=== PATIENT | female | born 2005 | race Caucasian/White ===

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

== ENCOUNTER 2024-01-11 19:38 | Emergency (ER) | payer OTHER, SELFPAY ==
[2024-01-11 20:01] VITALS: BP 114/62; PULSE 89; RESP 18; TEMP 37.1; O2SAT 99; BMI 20.2
[2024-01-12 01:10] VITALS: BP 128/75; PULSE 78; RESP 22; O2SAT 96
--- NOTE | 2024-01-12 01:22 | ED_ITS ---
HPI - Dental/Oral General Chief complaint: Dental/Oral Stated complaint: Rt bottom tooth ache Time Seen by Provider: 01/12/24 01:22 Source: patient Mode of arrival: Ambulatory History of Present Illness HPI Narrative: 18-year-old female with reported cavity known right lower tooth, awaiting scheduling of a dental filling, now with pain to that same tooth, no jaw swelling. Patient is not currently on antibiotics. No trouble swallowing, no swelling to the jaw. No neck pain, no trouble moving her neck. She handles her secretions well. No change in voice Related Data Home Medications Medication Instructions Recorded Confirmed propranolol 20 mg tablet 20 mg PO BID ##0 10/30/17 11/21/23 cholecalciferol (vitamin D3) 25 ##0 12/05/17 11/21/23 mcg/spray(1,000 unit/spray) subling spray, susp cyproheptadine 4 mg tablet 4 mg PO BEDTIME 10/22/23 11/21/23 dextroamphetamine-amphetamine ER 15 mg PO BID 10/22/23 11/21/23 15 mg 24hr capsule,extend release (Adderall XR) fluoxetine 10 mg capsule 10 mg PO DAILY 10/22/23 11/21/23 fluoxetine 20 mg capsule 20 mg PO DAILY 10/22/23 11/21/23 guanfacine 1 mg tablet 1 mg PO DAILY 10/22/23 11/21/23 lithium carbonate 150 mg capsule 150 mg PO ONCE 10/22/23 11/21/23 quetiapine 100 mg tablet 100 mg PO DAILY 10/22/23 11/21/23 Previous Rx's Medication Instructions Recorded ondansetron 4 mg disintegrating 4 mg PO Q8H PRN nausea, headache 06/10/23 tablet #14 tabs sumatriptan succinate 50 mg tablet 50 mg PO Q2-4H PRN migraine 11/24/23 (Imitrex) headache #9 tabs amoxicillin 500 mg tablet 500 mg PO Q8H 7 days #21 tabs 01/12/24 Allergies Allergy/AdvReac Type Severity Reaction Status Date / Time azithromycin AdvReac upset Verified 11/21/23 18:02 stomach Review of Systems Review of Systems ROS Unobtainable: All systems reviewed & are unremarkable except as noted in HPI and below Patient History Medical History (Updated 01/12/24 @ 02:19 by Thuan Lam MD) Acne (~2015) Sleep apnea Restless leg syndrome (~2019) Headache (~2015) Shoulder pain (~2018) Anemia (~2018) Vertigo (~2019) Tinnitus (~2016) Ruptured tympanic membrane (~2009) History of frequent ear infections in childhood (~2007) Sleep disturbance ADHD Autism (~2021) FADY (generalized anxiety disorder) PTSD (post-traumatic stress disorder) LOAN (middle ear effusion) Eczematoid otitis externa of right ear Otitis externa Otitis media Migraine (~2020) Depression (~2013) Suicidal ideation Surgical History (Updated 10/08/23 @ 18:50 by Divya De Jesus) Toenail fungus (~2020) Family History (Updated 10/08/23 @ 18:58 by Divya De Jesus) Father Diabetes mellitus Mental health problem Mother Hyperlipidemia Mental health problem Anxiety PTSD (post-traumatic stress disorder) Brother Mental health problem Anxiety Depression Chronic post-traumatic stress disorder (PTSD) Brother Mental health problem Anxiety Sister Mental health problem Anxiety Suicidal ideation Grandfather Autism Grandmother Anxiety Mental health problem Grandfather Diabetes mellitus History of heart disease Hypertension Grandmother Cancer Father Anxiety Chronic post-traumatic stress disorder (PTSD) Social History Smoking Status: Never smoker Smoking Status: Never smoker alcohol intake frequency: a few times a month Substance Use Type: does not use Exam Narrative Exam Narrative: GENERAL:Well-developed patient, in mild distress. HEAD: Atraumatic. Normocephalic. EYES: Pupils equal round and reactive. Extraocular motions intact. No scleral icterus. No injection or drainage. ENT: Nose without bleeding, purulent drainage. No grossly obvious significant dental caries right lower teeth, no swelling of gingiva, no buccal swelling, no submandibular swelling. Normal phonation. Handling secretions well. Normal neck movement. Throat without erythema, tonsillar hypertrophy or exudate. Airway patent. NECK: Trachea midline. Non tender CARDIOVASCULAR: Regular rate and rhythm without murmurs, gallops, or rubs. RESPIRATORY: Clear to auscultation. Breath sounds equal bilaterally. No wheezes, rales, or rhonchi. GASTROINTESTINAL: Abdomen soft, non-tender, nondistended. EXTREMITIES: No edema or joint tenderness. BACK: Nontender without deformity or crepitance. No flank tenderness. NEURO: AOx3. SKIN: No rash or erythema of visible areas Initial Vital Signs Initial Vital Signs: Vital Signs Temperature 98.8 F 01/11/24 20:01 Pulse Rate 89 01/11/24 20:01 Respiratory Rate 18 01/11/24 20:01 Blood Pressure 114/62 01/11/24 20:01 Pulse Oximetry 99 01/11/24 20:01 Oxygen Delivery Method Room Air 01/11/24 20:01 Course Orders Ordered: Discontinued Medications Amoxicillin (Amoxicillin 250 Mg Capsule) 1,000 mg PO NOW ONE Stop: 01/12/24 02:18 Last Admin: 01/12/24 02:30 Dose: 1,000 mg Documented By: Ketorolac Tromethamine (Ketorolac 30 Mg/Ml Vial) 30 mg IM NOW ONE Stop: 01/11/24 21:40 Last Admin: 01/11/24 22:56 Dose: Not Given Documented By: JESSE Vital Signs Vital signs: Vital Signs - 8 hr 01/12/24 01:10 01/12/24 02:32 Pulse Rate 78 71 Respiratory Rate 22 15 Blood Pressure 128/75 100/57 L Pulse Oximetry 96 100 Oxygen Delivery Method Room Air Room Air MDM - Dental/Oral MDM Narrative Medical decision making narrative: 18-year-old female with right lower molar dental pain, no swelling to cheek or submandibular space, afebrile, normal neck motion. Presumed apical dental abscess. First dose amoxicillin, prescription for 7 day course. Follow up with dentist advised for definitive care. Symptoms improved after IM Toradol. Consider ibuprofen pain control. Follow up with dentist, return precautions, home with family Discharge Plan Departure Patient Disposition: Home Clinical Impression: Pain, dental Instructions: Tooth Decay Activity Restrictions/Additional Instructions: Reported tooth cavity right lower awaiting filling by your dentist, now with atraumatic pain, no gross swelling to jaw or neck or cheek. Ibuprofen helped relieve pain. Consider use of ibuprofen over the counter. First dose antibi otic for presumed apical abscess infection given in the emergency department, prescription for further 7 day course. Follow up with your dentist, call his office later today Friday when open, to coordinate close follow up definitive care. Return to this/nearest emergency department for any change worsening symptoms or any concerns prior Prescriptions: New amoxicillin 500 mg tablet 500 mg PO Q8H 7 Days Qty: 21 0RF No Action dextroamphetamine-amphetamine [Adderall XR] 15 mg capsule,extended release 24 hr 15 mg PO BID cyproheptadine 4 mg tablet 4 mg PO BEDTIME fluoxetine 10 mg capsule 10 mg PO DAILY fluoxetine 20 mg capsule 20 mg PO DAILY guanfacine 1 mg tablet 1 mg PO DAILY lithium carbonate 150 mg capsule 150 mg PO ONCE quetiapine 100 mg tablet 100 mg PO DAILY propranolol 20 MG tablet 20 mg PO BID Qty: 0 cholecalciferol (vitamin D3) 30 ML spray,suspension Qty: 0 sumatriptan succinate [Imitrex] 50 mg tablet 50 mg PO Q2-4H PRN (Reason: migraine headache) Qty: 9 0RF Rx Instructions: do not exceed 4 doses per 24 hrs ondansetron 4 mg tablet,disintegrating 4 mg PO Q8H PRN (Reason: nausea, headache) Qty: 14 0RF Referrals: Maria A Elliott MD [Primary Care Provider] - Stand Alone Forms: Patient Portal/API
[2024-01-12] MEDS: AMOXICILLIN 250 MG CAPSULE 1000 MG PO (02:30)
[2024-01-12 02:32] VITALS: BP 100/57; PULSE 71; RESP 15; O2SAT 100
== END 2024-01-12 02:40 | disposition home or self-care (01) ==
PROVIDERS: Emergency Provider Emergency Medicine; PCP Family Medicine
DX: K08.89 Other specified disorders of teeth and supporting structures (principal)
CPT/HCPCS: 99283

== ENCOUNTER → 2024-04-17 10:12 | Outpatient (CLI) | payer OTHER, MEDICAID, SELFPAY ==
[2024-04-17 11:04] LABS: HEMOLYSIS < 15 (0-50); Iron 123 ug/dL (37-170)
[2024-04-17 11:14] LABS: Percent Iron Saturation 30 % (15-50); Total Iron Binding Capacity 406 ug/dL (265-497); Transferrin 318 mg/dL (206-381)
[2024-04-17 11:39] LABS: Ferritin 23 ng/mL (6-137)
== END ==
PROVIDERS: PCP Family Medicine; Referring Provider Nurse Practitioner; Visit Provider Nurse Practitioner
DX: R25.8 Other abnormal involuntary movements (principal); E83.10 Disorder of iron metabolism, unspecified
CPT/HCPCS: 36415; 82728; 83540; 83550

== ENCOUNTER → 2024-05-11 12:28 | Outpatient (CLI) | payer OTHER, MEDICAID, SELFPAY ==
[2024-05-11 14:46] LABS: Lithium 0.3 mmol/L (0.6-1.2)
== END ==
PROVIDERS: PCP Family Medicine; Referring Provider Psychiatry & Neurology Psychiatry; Visit Provider Psychiatry & Neurology Psychiatry
DX: F33.2 Major depressive disorder, recurrent severe without psychotic features (principal); F43.10 Post-traumatic stress disorder, unspecified; G47.00 Insomnia, unspecified; Z79.899 Other long term (current) drug therapy
CPT/HCPCS: 36415; 80178

== ENCOUNTER → 2024-07-01 15:31 | Outpatient (CLI) | payer BC, OTHER, SELFPAY ==
[2024-07-01 17:13] LABS: Add Manual Diff / Slide Review NO; Basophils Absolute Auto 0 /uL (0-100); Basophils Percent Auto 0.5 % (0-2); Eosinophils Absolute Auto 200 /uL (0-450); Eosinophils Percent Auto 1.7 % (2-4); Hematocrit 38.8 % (36-46); Hemoglobin 13.1 g/dL (12.0-16.0); Lymphocytes Absolute Auto 2700 /uL (1100-4500); Lymphocytes Percent Auto 29.7 % (25-40); Mean Corpuscular HGB Conc 33.8 % (30-36); Mean Corpuscular Hemoglobin 28.8 PG (26-34); Mean Corpuscular Volume 85.2 fL (80-100); Monocytes Absolute Auto 700 /uL (0-900); Monocytes Percent Auto 7.5 % (3-14); Neutrophils Absolute Auto 5600 /uL (1500-7000); Neutrophils Percent Auto 60.6 % (50-75); Platelet Count 232 X10^3/uL (150-400); Red Blood Cell Count 4.55 X10^6/uL (4.0-5.2); White Blood Cell Count 9.2 X10^3/uL (4.5-11.0)
[2024-07-01 17:19] LABS: Iron 153 ug/dL (37-170)
[2024-07-01 17:21] LABS: Alanine Aminotransferase 17 IU/L (<35); Albumin 4.3 g/dL (3.5-5.0); Albumin Globulin Ratio 1.7 (1.0-2.8); Alkaline Phosphatase 55 U/L (38-126); Aspartate Aminotransferase 27 IU/L (14-36); BUN Creatinine Ratio 14.7 (6-22); Bilirubin Total 0.4 mg/dL (0.2-1.3); Blood Urea Nitrogen 11 mg/dL (7-17); Calcium 9.5 mg/dL (8.4-10.2); Carbon Dioxide 24 mmol/L (22-32); Chloride 106 mmol/L (98-107); Estimated Glomerular Filt Rate > 60 mL/min (>60); Globulin 2.6 g/dL (1.7-4.1); Glucose 96 mg/dL (70-100); Potassium 3.9 mmol/L (3.4-5.1); Sodium 137 mmol/L (137-145); Total Protein 6.9 g/dL (6.3-8.2)
[2024-07-01 17:30] LABS: Percent Iron Saturation 35 % (15-50); Total Iron Binding Capacity 435 ug/dL (265-497); Transferrin 360 mg/dL (206-381)
[2024-07-01 17:57] LABS: Ferritin 49 ng/mL (6-137); HEMOLYSIS < 15 (0-50)
[2024-07-01 18:09] LABS: HEMOLYSIS < 15 (0-50)
[2024-07-06 13:12] LABS: ANA Screen, IFA Negative (.)
== END ==
PROVIDERS: PCP Family Medicine; Referring Provider Family Medicine; Visit Provider Family Medicine
DX: E61.1 Iron deficiency (principal); R53.83 Other fatigue; G25.81 Restless legs syndrome; F43.10 Post-traumatic stress disorder, unspecified; F41.1 Generalized anxiety disorder; F84.0 Autistic disorder; R63.6 Underweight; R42 Dizziness and giddiness; G43.909 Migraine, unspecified, not intractable, without status migrainosus
CPT/HCPCS: 80053; 82728; 83540; 83550; 84443; 85025; 86038

== ENCOUNTER 2024-08-27 18:44 | Emergency (ER) | payer OTHER, SELFPAY ==
[2024-08-27 18:55] VITALS: BP 128/61; PULSE 77; RESP 18; TEMP 37.4; O2SAT 100; BMI 22.4
[2024-08-27 21:08] VITALS: BP 95/59; PULSE 90; O2SAT 99
== END 2024-08-27 23:16 | disposition left against medical advice (07) ==
PROVIDERS: Emergency Provider Emergency Medicine; PCP Family Medicine
DX: M54.50 Low back pain, unspecified (principal)
CPT/HCPCS: 99281

== ENCOUNTER → 2024-12-20 15:21 | Outpatient (CLI) | payer BC, OTHER, SELFPAY ==
--- NOTE | 2024-12-20 15:22 | DI.NM.S_ITS ---
PROCEDURE: NM EXERCISE TREADMILL NON NUC COMPARISON: None INDICATIONS: CHEST PAIN FINDINGS: Rest ECG sinus rhythm 82 bpm. Merlin protocol 9:00, maximum heart rate 140 bpm (70% peak predicted), peak blood pressure 138/50, 10.1 METS, DANIELLE +17%. Exercise ECG sinus tachycardia, no ST segment changes or arrhythmias. The patient did not report exercise-induced chest discomfort however did complain of lightheadedness. IMPRESSION: Equivocal study. Unable to be interpreted for ischemia due to inability to achieve target heart rate. No evidence of exercise-induced arrhythmia or hypotension. Slightly reduced exercise capacity. Dictated by: Lindsey Dennis D.O. on 12/20/2024 at 16:16 Approved by: Lindsey Dennis D.O. on 12/20/2024 at 16:20
== END ==
PROVIDERS: Family Provider Family Medicine; PCP Family Medicine; Referring Provider Internal Medicine; Visit Provider Internal Medicine
DX: R07.9 Chest pain, unspecified (principal)
CPT/HCPCS: 93017

== ENCOUNTER → 2024-12-31 15:09 | Outpatient (CLI) | payer OTHER, SELFPAY ==
--- NOTE | 2024-12-31 15:10 | DI.ECHO.S_ITS ---
[facility] : : [address] : : [place] : : [id number] : : Phone: [phone] Echocardiogram Report + + :Name: ILIANA NELSON Study Date: 12/31/2024 Height: 60 in : :Hospital ReadingLocation: Weight: 130 lb : : Gender: Female BSA: 1.6 m2 : :: 2005 Age: 19 yrs BP: 110/72 mmHg: :Reason For Study: CHEST PAIN : :Ordering Physician: SHALINI, : :DAVIN Huang Performed By: Nic Moralez : :Referring: DAVIN LOYA : + + Interpretation Summary The left ventricle is normal in size. Left ventricular systolic function appears normal without focal wall motion abnormalities. The ejection fraction is estimated to be 55-60%. Diastolic parameters suggest probable normal left ventricular diastolic function and normal filling pressures. The right ventricle is normal in size and function. Pulmonary artery pressures cannot be estimated because of the lack of a measurable TR jet velocity but the IVC suggests a CVP of around 3 mmHg. There is no other significant valvular heart disease. In apical views there appears to be some degree of hypertrophy of the papillary muscle/chordae tendineae of the mitral subvalvular apparatus. Consider a limited echo to focus on subvalvular apparatus or cardiac MRI if clinically warranted.The left atrial size is normal. The aortic root is normal size. Procedure: A two-dimensional transthoracic echocardiogram with color flow and Doppler was performed. The study quality was technically good. There is no prior echocardiogram noted for this patient. The patient was in normal sinus rhythm during the exam. Left Ventricle: The left ventricle is normal in size. There is normal left ventricular wall thickness. In apical views there appears to be some degree of hypertrophy of the papillary muscle/chordae tendineae of the mitral subvalvular apparatus. Consider a limited echo to focus on subvalvular apparatus or cardiac MRI if clinically warranted. Left ventricular systolic function appears normal without focal wall motion abnormalities. The ejection fraction is estimated to be 55-60%. Diastolic parameters suggest probable normal left ventricular diastolic function and normal filling pressures. Right Ventricle: The right ventricle is normal in size and function. Atria: The left atrial size is normal. Right atrial size is normal. There is no Doppler evidence for an interatrial shunt. Mitral Valve: The mitral valve leaflets appear normal. There is no evidence of stenosis, fluttering, or prolapse. There is no mitral regurgitation noted. Aortic Valve: The aortic valve is trileaflet. The aortic valve opens well. No aortic regurgitation is present. Tricuspid Valve: The tricuspid valve leaflets are thin and pliable. No tricuspid regurgitation. Pulmonary artery pressures cannot be estimated because of the lack of a measurable TR jet velocity but the IVC suggests a CVP of around 3 mmHg. Pulmonic Valve: The pulmonic valve is not well seen, but is grossly normal. There is no pulmonic valvular regurgitation. There is no other significant valvular heart disease. Great Vessels: The aortic root is normal size. The dimensions of the ascending aorta are normal. The pulmonary artery is not well visualized, but is probably normal size. The IVC is of normal diameter and collapses greater than 50% with a sniff. This suggests a low right atrial pressure of 3 mm Hg. Pericardium/ Pleura There is no pericardial effusion. There is no pleural effusion. MMode/2D Measurements & Calculations LVIDd: 4.6 cm LVOT diam: 1.9 cm LVIDs: 3.0 cm Ao root diam: 2.5 cm FS: 35.6 % asc Aorta Diam: 2.4 cm EPSS: 0.56 cm Ao Arch Diam (Prox Trans): 1.2 cm IVSd: 0.50 cm LVPWd: 0.59 cm LV austin. diameter/BSA (cm/m^2): 2.9 LV sys. diameter/BSA (cm/m^2): 1.9 LA A2 area: 13.4 cm2 RA long axis: 3.9 cm LA A4 area: 14.0 cm2 RA area: 10.2 cm2 LA length (vol): 4.7 cm RA vol: 22.9 ml LA vol: 34.0 ml RA : 14.8 ml/m2 LA vol index: 21.9 ml/m2 IVC diam: 1.6 cm RVD1 (basal): 3.1 cm RVD2 (mid): 2.7 cm TAPSE: 2.8 cm Doppler Measurements & Calculations Ao V2 max: 148.4 cm/sec LVOT Max Karri: 112.1 cm/sec Ao V2 mean: 95.6 cm/sec LV V1 max P.0 mmHg Ao max P.8 mmHg LV V1 VTI: 22.3 cm Ao mean P.2 mmHg CARLIN(I,D): 2.0 cm2 Ao V2 VTI: 29.5 cm CARLIN(V,D): 2.0 cm2 sev ratio: 0.76 CARLIN indexed to BSA (cm^2/m^2): 1.3 MV E max karri: 128.5 cm/sec PA V2 max: 112.6 cm/sec MV A max karri: 38.7 cm/sec PA V2 mean: 86.9 cm/sec MV E/A: 3.3 PA mean P.2 mmHg Med Peak E' Karri: 13.9 cm/sec PA pr(Accel): 41.3 mmHg E/E' med: 9.2 Lat Peak E' Karri: 18.3 cm/sec E/E' lat: 7.0 E/e' average: 8.1 MV dec time: 0.20 sec SV(LVOT): 60.4 ml Reading Physician:07:27 AM
== END ==
LOC: ECHO 15:09
PROVIDERS: Family Provider Family Medicine; PCP Family Medicine; Referring Provider Internal Medicine; Visit Provider Internal Medicine
DX: R07.9 Chest pain, unspecified (principal); R42 Dizziness and giddiness; R00.0 Tachycardia, unspecified
CPT/HCPCS: 93306

== ENCOUNTER 2025-02-11 09:45 | Outpatient (RCR) | payer BC, OTHER, SELFPAY ==
--- NOTE | 2024-11-23 16:24 | PT.OIE ---
Current Diagnoses Dorsalgia, unspecified (11/23/24) Past Medical History (Last Updated 09/13/24 @ 14:01 by Andrea Curry MD) Acne (~2015) ADHD Anemia (~2017) Autism (~2021) Depression (~2013) Eczematoid otitis externa of right ear FADY (generalized anxiety disorder) Headache (~2015) History of frequent ear infections in childhood (~2007) LOAN (middle ear effusion) Migraine (~2020) Otitis externa Otitis media PTSD (post-traumatic stress disorder) Restless leg syndrome (~2019) Ruptured tympanic membrane (~2009) Shoulder pain (~2017) Sleep apnea Sleep disturbance Suicidal ideation Tinnitus (~2016) Vertigo (~2019) Past Surgical History (Last Updated 10/08/23 @ 18:50 by Divya De Jesus) Toenail fungus (~2020) Visit Care Team Role Provider Type Marai A Elliott MD Attending Provider Physician Family Provider Primary Care Provider Referring Provider Specialty: Family Practice 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 Address: [address] [place] [address] Email: [email or web address] Physical Therapy Initial Evaluation PT-OP-A Visit Information Start: 11/23/24 12:56 Freq: Status: Active Protocol: Document 11/23/24 11:40 DCW (Rec: 11/23/24 13:16 DCW [id number]) Out-Patient Physical Therapy Visit Information Visit Information Visit Type Initial Evaluation Visit Start Time 11:40 Visit Stop Time 12:15 Visit Number 1 Number of PAROLE OR PROBATION OFFICER Visits 0 Evaluation Information Evaluation Date 11/23/24 PT-OP-B Current Condition Start: 11/23/24 12:56 Freq: Status: Active Protocol: Document 11/23/24 11:40 DCW (Rec: 11/23/24 13:31 DCW [id number]) Current Condition History of Current Condition Onset Date Three month history Current Complaints Low back pain, mid back pain, shoulder pain History of Current Condition Pt is a 19 year old female presenting with a three month history of low back pain. Reports she must have twisted wrong or something, and experienced a general severe pain. Reports it was bad enough that she ended up in the ED, however left before being seen due to the wait. Has improved over the past few months, not as frequently sore. 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 Pain improves when she lies down. Notes pain is occasionally down her posterior hips, right worse than left. Treatment Goals Patient/Caregiver Goals Return to gardening and job duties without pain Personal Factors Other Personal Factors That May Effect Hx of Migraine, PTSD, Autism, Therapy/Recovery ADHA, Depression PT-OP-C Subjective Start: 11/23/24 12:56 Freq: Status: Active Protocol: Document 11/23/24 11:40 DCW (Rec: 11/23/24 13:16 DCW [id number]) OP-PT Subjective Patient Comments Patient Comments It's not painful all the time now. Patient Questionnaires Oswestry Low Back Index Oswestry Score = 22% OP-PT Pain Assessment Pain Assessment Grid Paper Pain Assessment Grid Completed Yes: See scan PT-OP-F Manual Assessment Start: 11/23/24 12:56 Freq: Status: Active Protocol: Document 11/23/24 11:40 DCW (Rec: 11/23/24 13:16 DCW [id number]) Manual Assessments Soft Tissue Assessment Soft Tissue Mobility Assessment Mild-moderate tone in right glute, bilateral piriformis, bilateral rhomboids, R>L upper trap PT-OP-L Special Tests Start: 11/23/24 12:56 Freq: Status: Active Protocol: Document 11/23/24 11:40 DCW (Rec: 11/23/24 13:16 DCW [id number]) Special Tests Lumbar Spine Special Tests Vertical Spine Loading Test Results Negative Straight Leg Raise Test Results Negative Standing Flexion Test Results Negative Slump Test Results Negative A-P Shearing Test Results Negative PT-OP-M Strength Start: 11/23/24 12:56 Freq: Status: Active Protocol: Document 11/23/24 11:40 DCW (Rec: 11/23/24 13:16 DCW [id number]) Trunk Strength Trunk Manual Muscle Testing Core Stabilization Difficulty john abdominal musculature, improved with verbal cues PT-OP-Q Treatments Start: 11/23/24 12:56 Freq: Status: Active Protocol: Document 11/23/24 11:40 DCW (Rec: 11/23/24 13:16 DCW [id number]) Therapeutic Exercises Supine Exercises PPT Supine Exercise Name PPT /c TrA bracing Sitting Exercises Piriformis Sitting Exercise Name Seated figure-4 Scalene Sitting Exercise Name posterior scalene stretch Side bilateral Upper Trap Sitting Exercise Name Upper Trap stretch Side bilateral PT-OP-T Assessment and Plan Start: 11/23/24 12:56 Freq: Status: Active Protocol: Document 11/23/24 11:40 DCW (Rec: 11/23/24 16:24 DCW [id number]) Physical Therapy Assessment Rehab Potential Rehabilitation Potential Good Evaluation Complexity Number of Personal Factors/Comorbidities 3 or More Number of Body Systems Impaired 3 Clinical Presentation at Evaluation Evolving Impairments Impairments Activity Tolerance,Functional Activities,Functional Mobility ,Pain,Soft Tissue Mobility, Strength,Tone Goals Three Impairment Pt displays increased muscle tone in low back and bilateral piriformis Lending Advisor Goal (LTG) Pt to present with mild muscle tone in bilateral lumbar paraspinals and piriformis LTG Duration 01/23/25 Two Impairment Pt experiences increased low back pain when gardening [facility] Goal (LTG) Pt to report ability to spend 90 minutes gardening without increased back pain. LTG Duration 01/23/25 One Impairment Pt does not have an appropriate home exercise program Short Term Goal (STG) Pt to be independent and compliant with an appropriate HEP STG Duration 12/23/24 Assessment Summary Assessment Pt presents with signs and symptoms consistent with referring diagnosis. Special testing largely unremarkable today, unable to replicate any of her ongoing pain. No notable structural changes. Does appear to have increased tone in low back musculature, as well as some overall core weakness. Pt should benefit from skilled therapeutic intervention focusing on core strengthening, tone management , stretching/flexibility, and functional mobility. Physical Therapy Plan Frequency and Duration Frequency of Treatment 2x/Week Plan of Care Start Date 11/23/24 Plan of Care End Date 01/23/25 Therapeutic Interventions Therapeutic Interventions Home Exercise Program,Joint Mobilizations,Manual Therapy, Neuromuscular Re-education, Patient/Caregiver Education, Self-Care/Home Management,Soft Tissue Mobilization,Taping, Therapeutic Activities, Therapeutic Exercises Next Visit Focus/Plan Next Note Type Treatment Note Next Visit Plan Core/trunk strengthening, stretching, STM
--- NOTE | 2024-11-23 16:24 | PT.OPPOC ---
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 Reports she must have twisted wrong or something, and experienced a general severe pain. Reports it was bad enough that she ended up in the ED, however left before being seen due to the wait. Has improved over the past few months, not as frequently sore. 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 Pain improves when she lies down. Notes pain is occasionally down her posterior hips, right worse than left. Treatment Goals Patient/Caregiver Goals Return to gardening and job duties without pain Personal Factors Other Personal Factors That May Effect Hx of Migraine, PTSD, Autism, Therapy/Recovery ADHA, Depression PT-OP-T Assessment and Plan Start: 11/23/24 12:56 Freq: Status: Active Protocol: Document 11/23/24 11:40 DCW (Rec: 11/23/24 16:24 DCW [id number]) Physical Therapy Assessment Rehab Potential Rehabilitation Potential Good Evaluation Complexity Number of Personal Factors/Comorbidities 3 or More Number of Body Systems Impaired 3 Clinical Presentation at Evaluation Evolving Impairments Impairments Activity Tolerance,Functional Activities,Functional Mobility ,Pain,Soft Tissue Mobility, Strength,Tone Goals Three Impairment Pt displays increased muscle tone in low back and bilateral piriformis Prison Goal (LTG) Pt to present with mild muscle tone in bilateral lumbar paraspinals and piriformis LTG Duration 01/23/25 Two Impairment Pt experiences increased low back pain when gardening Supervisor Shearing Goal (LTG) Pt to report ability to spend 90 minutes gardening without increased back pain. LTG Duration 01/23/25 One Impairment Pt does not have an appropriate home exercise program Short Term Goal (STG) Pt to be independent and compliant with an appropriate HEP STG Duration 12/23/24 Assessment Summary Assessment Pt presents with signs and symptoms consistent with referring diagnosis. Special testing largely unremarkable today, unable to replicate any of her ongoing pain. No notable structural changes. Does appear to have increased tone in low back musculature, as well as some overall core weakness. Pt should benefit from skilled therapeutic intervention focusing on core strengthening, tone management , stretching/flexibility, and functional mobility. Physical Therapy Plan Frequency and Duration Frequency of Treatment 2x/Week Plan of Care Start Date 11/23/24 Plan of Care End Date 01/23/25 Therapeutic Interventions Therapeutic Interventions Home Exercise Program,Joint Mobilizations,Manual Therapy, Neuromuscular Re-education, Patient/Caregiver Education, Self-Care/Home Management,Soft Tissue Mobilization,Taping, Therapeutic Activities, Therapeutic Exercises Next Visit Focus/Plan Next Note Type Treatment Note Next Visit Plan Core/trunk strengthening, stretching, STM Plan of Care Dates Plan of Care Start Date 11/23/24 Plan of Care End Date 01/23/25 Electronically Signed by: Malik Botello, PT 11/23/24 [id number] If you are in agreement with this Plan of Care, please return a signed and dated copy. I have reviewed this Plan of Care and certify that the skilled therapy services above are required to meet the patient?s needs. Physician Signature Date Printed Name and Credentials Clinical Instructor Signature Printed Name and Credentials
--- NOTE | 2024-11-26 12:17 | PT.OTN ---
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 Reports she must have twisted wrong or something, and experienced a general severe pain. Reports it was bad enough that she ended up in the ED, however left before being seen due to the wait. Has improved over the past few months, not as frequently sore. 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 Pain improves when she lies down. Notes pain is occasionally down her posterior hips, right worse than left. Treatment Goals Patient/Caregiver Goals Return to gardening and job duties without pain Personal Factors Other Personal Factors That May Effect Hx of Migraine, PTSD, Autism, Therapy/Recovery ADHA, Depression PT-OP-C Subjective Start: 11/23/24 12:56 Freq: Status: Active Protocol: Document 11/26/24 11:32 DCW (Rec: 11/26/24 12:17 DCW [id number]) OP-PT Subjective Patient Comments Patient Comments Pt admits she fairly tired today. PT-OP-F Manual Assessment Start: 11/23/24 12:56 Freq: Status: Active Protocol: Document 11/23/24 11:40 DCW (Rec: 11/23/24 13:16 DCW [id number]) Manual Assessments Soft Tissue Assessment Soft Tissue Mobility Assessment Mild-moderate tone in right glute, bilateral piriformis, bilateral rhomboids, R>L upper trap PT-OP-L Special Tests Start: 11/23/24 12:56 Freq: Status: Active Protocol: Document 11/23/24 11:40 DCW (Rec: 11/23/24 13:16 DCW [id number]) Special Tests Lumbar Spine Special Tests Vertical Spine Loading Test Results Negative Straight Leg Raise Test Results Negative Standing Flexion Test Results Negative Slump Test Results Negative A-P Shearing Test Results Negative PT-OP-M Strength Start: 11/23/24 12:56 Freq: Status: Active Protocol: Document 11/23/24 11:40 DCW (Rec: 11/23/24 13:16 DCW [id number]) Trunk Strength Trunk Manual Muscle Testing Core Stabilization Difficulty john abdominal musculature, improved with verbal cues PT-OP-Q Treatments Start: 11/23/24 12:56 Freq: Status: Active Protocol: Document 11/26/24 11:32 DCW (Rec: 11/26/24 12:17 DCW [id number]) Gym Equipment Therapeutic Ball Bridging Exercise Details Bridging /c feet on ball Ball Size/Color Blue - 45 cm Body Position Supine LTR Exercise Details LTR Ball Size/Color Blue - 45 cm Body Position Hooklying Therapeutic Exercises Supine Exercises Piriformis Supine Exercise Name Piriformis Stretch Side bilateral Hamstring Supine Exercise Name HS stretch Side bilateral Marching Supine Exercise Name PPT /c Marching Side bilateral Comments Increased back pain - hold Standing Exercises Hip Extension Standing Exercise Name Hip Extension Side bilateral Resistance Green loop Pallof Press Standing Exercise Name Pallof Press Side bilateral Resistance Blue Other Exercises Resisted Ambulation Other Exercise Name Resisted Side-stepping Side bilateral Resistance Green loop Manual Therapy Treatment Manual Traction Hip traction Details Short-axis hip traction - capsular stretching Body Position Hooklying Comments /c Strap PT-OP-T Assessment and Plan Start: 11/23/24 12:56 Freq: Status: Active Protocol: Document 11/26/24 11:32 DCW (Rec: 11/26/24 12:17 DCW [id number]) Physical Therapy Assessment Impairments Impairments Activity Tolerance,Functional Activities,Functional Mobility ,Pain,Soft Tissue Mobility, Strength,Tone Goals Three Impairment Pt displays increased muscle tone in low back and bilateral piriformis Core Sucker Goal (LTG) Pt to present with mild muscle tone in bilateral lumbar paraspinals and piriformis LTG Duration 01/23/25 Two Impairment Pt experiences increased low back pain when gardening Core Sucker Goal (LTG) Pt to report ability to spend 90 minutes gardening without increased back pain. LTG Duration 01/23/25 One Impairment Pt does not have an appropriate home exercise program Short Term Goal (STG) Pt to be independent and compliant with an appropriate HEP STG Duration 12/23/24 Assessment Summary Assessment By end of session, pt was experiencing some increased contralateral hip/back pain with most LE exercises, may have some indication of SI dysfunction. May benefit from pelvic stabilization/hip strengthening exercises next visit. Physical Therapy Plan Frequency and Duration Frequency of Treatment 2x/Week Plan of Care Start Date 11/23/24 Plan of Care End Date 01/23/25 Therapeutic Interventions Therapeutic Interventions Home Exercise Program,Joint Mobilizations,Manual Therapy, Neuromuscular Re-education, Patient/Caregiver Education, Self-Care/Home Management,Soft Tissue Mobilization,Taping, Therapeutic Activities, Therapeutic Exercises Next Visit Focus/Plan Next Note Type Treatment Note Next Visit Plan Core/trunk strengthening, stretching, STM
--- NOTE | 2024-12-03 17:21 | PT.OTN ---
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 Reports she must have twisted wrong or something, and experienced a general severe pain. Reports it was bad enough that she ended up in the ED, however left before being seen due to the wait. Has improved over the past few months, not as frequently sore. 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 Pain improves when she lies down. Notes pain is occasionally down her posterior hips, right worse than left. Treatment Goals Patient/Caregiver Goals Return to gardening and job duties without pain Personal Factors Other Personal Factors That May Effect Hx of Migraine, PTSD, Autism, Therapy/Recovery ADHA, Depression PT-OP-C Subjective Start: 11/23/24 12:56 Freq: Status: Active Protocol: Document 12/03/24 14:15 AB (Rec: 12/03/24 17:14 AB Laptop) OP-PT Subjective Patient Comments Patient Comments Patient reports she is tired today, comments she is always tired. Patient reports her joints feel a little better, other stuff not so much. Patient reports she missed a few days of doing exercises, has been out of her normal routine, staying at someone's home to dog sit. PT-OP-F Manual Assessment Start: 11/23/24 12:56 Freq: Status: Active Protocol: Document 11/23/24 11:40 DCW (Rec: 11/23/24 13:16 DCW [id number]) Manual Assessments Soft Tissue Assessment Soft Tissue Mobility Assessment Mild-moderate tone in right glute, bilateral piriformis, bilateral rhomboids, R>L upper trap PT-OP-L Special Tests Start: 11/23/24 12:56 Freq: Status: Active Protocol: Document 11/23/24 11:40 DCW (Rec: 11/23/24 13:16 DCW [id number]) Special Tests Lumbar Spine Special Tests Vertical Spine Loading Test Results Negative Straight Leg Raise Test Results Negative Standing Flexion Test Results Negative Slump Test Results Negative A-P Shearing Test Results Negative PT-OP-M Strength Start: 11/23/24 12:56 Freq: Status: Active Protocol: Document 11/23/24 11:40 DCW (Rec: 11/23/24 13:16 DCW [id number]) Trunk Strength Trunk Manual Muscle Testing Core Stabilization Difficulty john abdominal musculature, improved with verbal cues PT-OP-Q Treatments Start: 11/23/24 12:56 Freq: Status: Active Protocol: Document 12/03/24 14:15 AB (Rec: 12/03/24 17:14 AB Laptop) Therapeutic Exercises Supine Exercises Breathing from diaphragm in modified restorative pose Supine Exercise Name HEP Reps/Minutes 3 min Comments VC for breathing from diaphragm Piriformis Supine Exercise Name Piriformis Stretch Side bilateral Reps/Minutes not rozina reports pinching groin Comments multiple trials post STM, mobs . Sitting Exercises AROM IR Sitting Exercise Name AROM Side bilateral Reps/Minutes X 10 Comments verbal cues Piriformis Sitting Exercise Name piriformis Equipment Used 60 sec R Reps/Minutes rozina R post STM and mobs L continues to pinch Manual Therapy Treatment Consent Patient gave verbal consent for manual Yes treatment Soft Tissue Mobilization bilateral glute/piriforms Mobilization Type Cross-Friction,Rolling Intensity/Depth Moderate Body Position Hooklying Joint Mobilizations bilateral hips Joint AP and med to lat Grade IV Body Position Hooklying Reps/Duration 3X10 each mob each LE Manual Techniques L piriformis contract relax Reps/Duration X 3 MET for L AI right PI and pubic shotgun Reps/Duration 6 X 6 seconds each PT-OP-T Assessment and Plan Start: 11/23/24 12:56 Freq: Status: Active Protocol: Document 12/03/24 14:15 AB (Rec: 12/03/24 17:14 AB Laptop) Physical Therapy Assessment Goals Three Impairment Pt displays increased muscle tone in low back and bilateral piriformis Lift Team Technician Goal (LTG) Pt to present with mild muscle tone in bilateral lumbar paraspinals and piriformis LTG Duration 01/23/25 Two Impairment Pt experiences increased low back pain when gardening Lift Team Technician Goal (LTG) Pt to report ability to spend 90 minutes gardening without increased back pain. LTG Duration 01/23/25 One Impairment Pt does not have an appropriate home exercise program Short Term Goal (STG) Pt to be independent and compliant with an appropriate HEP STG Duration 12/23/24 Assessment Summary Assessment Patient reports 02/01 discomfort R gluteal area persists. Pinching at groin with self piriformis stretch persists L LE post manual therapy, but had less pinching with gentle repetitions of contract relax. Physical Therapy Plan Frequency and Duration Frequency of Treatment 2x/Week Plan of Care Start Date 11/23/24 Plan of Care End Date 01/23/25 Therapeutic Interventions Therapeutic Interventions Home Exercise Program,Joint Mobilizations,Manual Therapy, Neuromuscular Re-education, Patient/Caregiver Education, Self-Care/Home Management,Soft Tissue Mobilization,Taping, Therapeutic Activities, Therapeutic Exercises
--- NOTE | 2024-12-07 10:38 | PT.OTN ---
Current Diagnoses Dorsalgia, unspecified (12/07/24) Physical Therapy Treatment Note PT-OP-A Visit Information Start: 11/23/24 12:56 Freq: Status: Active Protocol: Document 12/07/24 09:41 AB (Rec: 12/07/24 10:38 AB Laptop) Out-Patient Physical Therapy Visit Information Visit Information Visit Type Treatment Note Visit Note Visit Access Code: [email or web address] ( core ) Visit Start Time 09:50 Visit Stop Time 10:01 Visit Number 4 Number of HOTEL SERVICE SUPERVISOR Visits 2 Evaluation Information Evaluation Date 11/23/24 PT-OP-B Current Condition Start: 11/23/24 12:56 Freq: Status: Active Protocol: Document 11/23/24 11:40 DCW (Rec: 11/23/24 13:31 DCW [id number]) Current Condition History of Current Condition Onset Date Three month history Current Complaints Low back pain, mid back pain, shoulder pain History of Current Condition Pt is a 19 year old female presenting with a three month history of low back pain. Reports she must have twisted wrong or something, and experienced a general severe pain. Reports it was bad enough that she ended up in the ED, however left before being seen due to the wait. Has improved over the past few months, not as frequently sore. 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 Pain improves when she lies down. Notes pain is occasionally down her posterior hips, right worse than left. Treatment Goals Patient/Caregiver Goals Return to gardening and job duties without pain Personal Factors Other Personal Factors That May Effect Hx of Migraine, PTSD, Autism, Therapy/Recovery ADHA, Depression PT-OP-C Subjective Start: 11/23/24 12:56 Freq: Status: Active Protocol: Document 12/07/24 09:41 AB (Rec: 12/07/24 10:38 AB Laptop) OP-PT Subjective Patient Comments Patient Comments Patient reports she has had a rough week and it is Friday, Mother was into emergency room this weekend due to gardening accident which requires surgery. Patient reports feeling tired start of session . Patient rates neck pain 3/10 start of session, hips are OK right night. PT-OP-F Manual Assessment Start: 11/23/24 12:56 Freq: Status: Active Protocol: Document 11/23/24 11:40 DCW (Rec: 11/23/24 13:16 DCW [id number]) Manual Assessments Soft Tissue Assessment Soft Tissue Mobility Assessment Mild-moderate tone in right glute, bilateral piriformis, bilateral rhomboids, R>L upper trap PT-OP-L Special Tests Start: 11/23/24 12:56 Freq: Status: Active Protocol: Document 11/23/24 11:40 DCW (Rec: 11/23/24 13:16 DCW [id number]) Special Tests Lumbar Spine Special Tests Vertical Spine Loading Test Results Negative Straight Leg Raise Test Results Negative Standing Flexion Test Results Negative Slump Test Results Negative A-P Shearing Test Results Negative PT-OP-M Strength Start: 11/23/24 12:56 Freq: Status: Active Protocol: Document 11/23/24 11:40 DCW (Rec: 11/23/24 13:16 DCW [id number]) Trunk Strength Trunk Manual Muscle Testing Core Stabilization Difficulty john abdominal musculature, improved with verbal cues PT-OP-Q Treatments Start: 11/23/24 12:56 Freq: Status: Active Protocol: Document 12/07/24 09:41 AB (Rec: 12/07/24 10:38 AB Laptop) Therapeutic Exercises Supine Exercises chin tuck with head lift Supine Exercise Name to activate core Reps/Minutes X 5 for 7 seconds Comments verbal cues Breathing from diaphragm in modified restorative pose Supine Exercise Name HEP Reps/Minutes 3 min Comments VC for breathing from diaphragm Sidelying Exercises side plank Sidelying Exercise Name initiated on feet L side not rozina, then knees and forearm Equipment Used HEP Reps/Minutes X 5 for 7 second hold Comments verbal cues, reports L shoulder pain post set of 5 Sitting Exercises seated core warm up Sitting Exercise Name 1. seated shoulder flexion 2. seated trunk rotation Side bilateral Reps/Minutes X 5 X 5 Comments Verbal and visual cues. Piriformis Sitting Exercise Name 1. piriformis 2. figure 4 Side bilateral Equipment Used 60 sec each LE each stretch Comments monitored for pain and pinching (R hip A little bit at add Other Exercises sit to stand Other Exercise Name without UE use Side bilateral Reps/Minutes X 10 Comments verbal and visual cues for hip hinge quadruped Other Exercise Name 1. alt UE lift 2 alt LE lift HEP Side bilateral Reps/Minutes X 5 for 7 sec hold Comments Verbal cues for alignment, direction of movement and to avoid LS extension Manual Therapy Treatment Consent Patient gave verbal consent for manual Yes treatment Taping thoracic to SI Treatment Focus for pain and posture I strips along paraspinals to SI, horiz lumb/SI * Type of Tape Kinesio Tape Skin Inspection WNL Comments * Y scap to spine ie 2 I's Manual Techniques MET for L AI right PI and pubic shotgun Type Modified one LE into mat one into therapist's UE Reps/Duration 6 X 6 seconds each Comments resisted hip abd and add, resisted hip extension L flexion R PT-OP-T Assessment and Plan Start: 11/23/24 12:56 Freq: Status: Active Protocol: Document 12/07/24 09:41 AB (Rec: 12/07/24 10:38 AB Laptop) Physical Therapy Assessment Goals Three Impairment Pt displays increased muscle tone in low back and bilateral piriformis Physician Practice Market Manager Goal (LTG) Pt to present with mild muscle tone in bilateral lumbar paraspinals and piriformis LTG Duration 01/23/25 Two Impairment Pt experiences increased low back pain when gardening Skilled Nursing Goal (LTG) Pt to report ability to spend 90 minutes gardening without increased back pain. LTG Duration 01/23/25 One Impairment Pt does not have an appropriate home exercise program Short Term Goal (STG) Pt to be independent and compliant with an appropriate HEP STG Duration 12/23/24 Assessment Summary Assessment Raisa rates neck pain 3-4/10, glute/hip pain 2/10, reports some discomfort in hips/ pinching with piriformis stretches and sit to stand. Physical Therapy Plan Frequency and Duration Frequency of Treatment 2x/Week Plan of Care Start Date 11/23/24 Plan of Care End Date 01/23/25 Therapeutic Interventions Therapeutic Interventions Home Exercise Program,Joint Mobilizations,Manual Therapy, Neuromuscular Re-education, Patient/Caregiver Education, Self-Care/Home Management,Soft Tissue Mobilization,Taping, Therapeutic Activities, Therapeutic Exercises Next Visit Focus/Plan Next Note Type Treatment Note Next Visit Plan Core/trunk strengthening, stretching, STM
--- NOTE | 2024-12-09 11:45 | PT.OTN ---
Current Diagnoses Dorsalgia, unspecified (12/09/24) Physical Therapy Treatment Note PT-OP-A Visit Information Start: 11/23/24 12:56 Freq: Status: Active Protocol: Document 12/09/24 10:48 NBM (Rec: 12/09/24 11:39 NBM Laptop) Out-Patient Physical Therapy Visit Information Visit Information Visit Type Treatment Note Visit Note Pt late Visit Start Time 10:48 Visit Stop Time 11:28 Visit Number 5 Number of GENERAL OPHTHALMOLOGIST Visits 3 Evaluation Information Evaluation Date 11/23/24 PT-OP-B Current Condition Start: 11/23/24 12:56 Freq: Status: Active Protocol: Document 11/23/24 11:40 DCW (Rec: 11/23/24 13:31 DCW [id number]) Current Condition History of Current Condition Onset Date Three month history Current Complaints Low back pain, mid back pain, shoulder pain History of Current Condition Pt is a 19 year old female presenting with a three month history of low back pain. Reports she must have twisted wrong or something, and experienced a general severe pain. Reports it was bad enough that she ended up in the ED, however left before being seen due to the wait. Has improved over the past few months, not as frequently sore. 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 Pain improves when she lies down. Notes pain is occasionally down her posterior hips, right worse than left. Treatment Goals Patient/Caregiver Goals Return to gardening and job duties without pain Personal Factors Other Personal Factors That May Effect Hx of Migraine, PTSD, Autism, Therapy/Recovery ADHA, Depression PT-OP-C Subjective Start: 11/23/24 12:56 Freq: Status: Active Protocol: Document 12/09/24 10:48 NBM (Rec: 12/09/24 11:39 NBM Laptop) OP-PT Subjective Patient Comments Patient Comments Right now neck is 3/10, and hip is 4/10. Not horribly bad but enough to notice. Raisa reports it's been a difficult week and her mom had a surgery and is doing better now. PT-OP-F Manual Assessment Start: 11/23/24 12:56 Freq: Status: Active Protocol: Document 11/23/24 11:40 DCW (Rec: 11/23/24 13:16 DCW [id number]) Manual Assessments Soft Tissue Assessment Soft Tissue Mobility Assessment Mild-moderate tone in right glute, bilateral piriformis, bilateral rhomboids, R>L upper trap PT-OP-L Special Tests Start: 11/23/24 12:56 Freq: Status: Active Protocol: Document 11/23/24 11:40 DCW (Rec: 11/23/24 13:16 DCW [id number]) Special Tests Lumbar Spine Special Tests Vertical Spine Loading Test Results Negative Straight Leg Raise Test Results Negative Standing Flexion Test Results Negative Slump Test Results Negative A-P Shearing Test Results Negative PT-OP-M Strength Start: 11/23/24 12:56 Freq: Status: Active Protocol: Document 11/23/24 11:40 DCW (Rec: 11/23/24 13:16 DCW [id number]) Trunk Strength Trunk Manual Muscle Testing Core Stabilization Difficulty john abdominal musculature, improved with verbal cues PT-OP-Q Treatments Start: 11/23/24 12:56 Freq: Status: Active Protocol: Document 12/09/24 10:48 NBM (Rec: 12/09/24 11:39 NBM Laptop) Therapeutic Exercises Supine Exercises hip adduction Supine Exercise Name w/ TrA and breath Side bilateral Equipment Used folded pillow Reps/Minutes 10 x 5SH hold Comments L hip adductor discomfort clamshell Supine Exercise Name w/ TrA and breath Side bilateral Resistance Lvl 2 Tb Reps/Minutes x10 Comments some discomfort noted along L adductors but no pain Piriformis Supine Exercise Name Piriformis Stretch - Figure 4 Side bilateral Reps/Minutes 60 ea Comments gentle, pain-free range PPT Supine Exercise Name 1. PPT /c TrA bracing 2. LTR 3 . Side bilateral Equipment Used visual aids for TrA a&p Reps/Minutes x10 ea Comments w/ breathwork, painfree Other Exercises quadruped Other Exercise Name 1. alt UE fwd reach> lift 2. alt LE lift HEP review Side bilateral Reps/Minutes x10 ea. 1. pt challenged to maintain core, adv to focus on UE for now. Comments vc cervical alignment, centering weight, TrA, breath Therapeutic Activity Therapeutic Activity Log roll Name w/ TrA and breath focus Comments EOB<>sidelying<>supine x2 ea. (Pt is used to sitting straight up from supine with breathholding compensation.) Demos improved mechanics and self-awareness. Manual Therapy Treatment Consent Patient gave verbal consent for manual Yes treatment Soft Tissue Mobilization shoulders Body Location B UT, LS, scalenes. Mobilization Type Rolling,Trigger Point Release Intensity/Depth Moderate Body Position Hooklying Comments R>L UT tightness but pt reports more discomfort L>R today; palpable tension improves with manual therapy. Joint Mobilizations bilateral hips Joint AP and med to lat Grade IV Body Position Hooklying Reps/Duration 2X10 each mob each LE Self-Care/Home Management Treatment Education Patient Education Body Mechanics,Home Exercise Program,Posture Other Education Education of Transverse abdominis m. anatomy and activation w/ visual aids, interrelationship w/ diaphragm and pelvic floor, and importance of not breathholding to improve core recruitment and low back pain. HEP review w/ TrA and breath focus. Verbal discussion of how to incorporate TrA and breath into transitions and gardening mechanics. PT-OP-T Assessment and Plan Start: 11/23/24 12:56 Freq: Status: Active Protocol: Document 12/09/24 10:48 NBM (Rec: 12/09/24 11:39 NBM Laptop) Physical Therapy Assessment Goals Three Impairment Pt displays increased muscle tone in low back and bilateral piriformis Halfway Goal (LTG) Pt to present with mild muscle tone in bilateral lumbar paraspinals and piriformis LTG Duration 01/23/25 Two Impairment Pt experiences increased low back pain when gardening Cnc Mill Programmer Goal (LTG) Pt to report ability to spend 90 minutes gardening without increased back pain. LTG Duration 01/23/25 One Impairment Pt does not have an appropriate home exercise program Short Term Goal (STG) Pt to be independent and compliant with an appropriate HEP STG Duration 12/23/24 Assessment Summary Assessment Treatment focus on manual therapy, education, and core strengthening with breathwork. Raisa is educated with visual aids on Transverse abdominis m. anatomy and interrelationship with diaphragm and pelvis to understand importance of breathwork in strengthening core and improving low back pain. She sits straight up from supine and is instructed in log roll method for getting in and out of bed. Palpable tension to B UT and LS improves with manual therapy and posterior hip pain is most relieved with AP and medal to lateral joint mobilization at iliac crests B, consistent with evaluating PTs 11/26/24 assessment of some indication of SI dysfunction. Physical Therapy Plan Frequency and Duration Frequency of Treatment 2x/Week Plan of Care Start Date 11/23/24 Plan of Care End Date 01/23/25 Therapeutic Interventions Therapeutic Interventions Home Exercise Program,Joint Mobilizations,Manual Therapy, Neuromuscular Re-education, Patient/Caregiver Education, Self-Care/Home Management,Soft Tissue Mobilization,Taping, Therapeutic Activities, Therapeutic Exercises Next Visit Focus/Plan Next Note Type Treatment Note Next Visit Plan Continue pelvic stabilization/ hip strengthening ex per 11/26 assessment. POC: Core/trunk strengthening, stretching, STM
--- NOTE | 2024-12-17 16:33 | PT.OTN ---
Current Diagnoses Dorsalgia, unspecified (12/17/24) Physical Therapy Treatment Note PT-OP-A Visit Information Start: 11/23/24 12:56 Freq: Status: Active Protocol: Document 12/17/24 14:44 NBM (Rec: 12/17/24 15:31 NBM Laptop) Out-Patient Physical Therapy Visit Information Visit Information Visit Type Treatment Note Visit Start Time 14:40 Visit Stop Time 15:25 Visit Number 6 Number of INHALATION THERAPY AIDES TEACHER Visits 4 Evaluation Information Evaluation Date 11/23/24 PT-OP-B Current Condition Start: 11/23/24 12:56 Freq: Status: Active Protocol: Document 11/23/24 11:40 DCW (Rec: 11/23/24 13:31 DCW [id number]) Current Condition History of Current Condition Onset Date Three month history Current Complaints Low back pain, mid back pain, shoulder pain History of Current Condition Pt is a 19 year old female presenting with a three month history of low back pain. Reports she must have twisted wrong or something, and experienced a general severe pain. Reports it was bad enough that she ended up in the ED, however left before being seen due to the wait. Has improved over the past few months, not as frequently sore. 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 Pain improves when she lies down. Notes pain is occasionally down her posterior hips, right worse than left. Treatment Goals Patient/Caregiver Goals Return to gardening and job duties without pain Personal Factors Other Personal Factors That May Effect Hx of Migraine, PTSD, Autism, Therapy/Recovery ADHA, Depression PT-OP-C Subjective Start: 11/23/24 12:56 Freq: Status: Active Protocol: Document 12/17/24 14:44 NBM (Rec: 12/17/24 15:31 NBM Laptop) OP-PT Subjective Patient Comments Patient Comments Raisa reports she has R neck pain more at the front than at the back where it usually is. Right now the pain is 4/10 but yesterday it was a 7/10, and the day before it was 7-8/ 10. I wish I knew what I'm doing to make the progress go back like this. She's been trying to notice her posture and body position while gardening, and did her exercises on hands and knees while gardening. She has not stretched as much as she would 've liked lately, and had a lot of stress lately, and will need to put her dog down. PT-OP-F Manual Assessment Start: 11/23/24 12:56 Freq: Status: Active Protocol: Document 11/23/24 11:40 DCW (Rec: 11/23/24 13:16 DCW [id number]) Manual Assessments Soft Tissue Assessment Soft Tissue Mobility Assessment Mild-moderate tone in right glute, bilateral piriformis, bilateral rhomboids, R>L upper trap PT-OP-L Special Tests Start: 11/23/24 12:56 Freq: Status: Active Protocol: Document 11/23/24 11:40 DCW (Rec: 11/23/24 13:16 DCW [id number]) Special Tests Lumbar Spine Special Tests Vertical Spine Loading Test Results Negative Straight Leg Raise Test Results Negative Standing Flexion Test Results Negative Slump Test Results Negative A-P Shearing Test Results Negative PT-OP-M Strength Start: 11/23/24 12:56 Freq: Status: Active Protocol: Document 11/23/24 11:40 DCW (Rec: 11/23/24 13:16 DCW [id number]) Trunk Strength Trunk Manual Muscle Testing Core Stabilization Difficulty john abdominal musculature, improved with verbal cues PT-OP-Q Treatments Start: 11/23/24 12:56 Freq: Status: Active Protocol: Document 12/17/24 14:44 NBM (Rec: 12/17/24 15:31 NBM Laptop) Therapeutic Exercises Supine Exercises Breathing from diaphragm in modified restorative pose Supine Exercise Name HEP Reps/Minutes 3 min Comments VC for breathing from diaphragm Piriformis Supine Exercise Name Piriformis Stretch - Figure 4 (HEP) Side bilateral Reps/Minutes 60 ea Comments gentle, pain-free range PPT Supine Exercise Name HEP: 1. PPT /c TrA bracing 2. LTR 3. BKFO 4. Heel slides Side bilateral Equipment Used initial tactile cue for PPT w/ LTR Reps/Minutes x10 ea Comments w/ breathwork, painfree Other Exercises quadruped Other Exercise Name 1. alt UE fwd reach> lift 2. alt LE lift (verbal HEP review ) Side bilateral Reps/Minutes x10 ea. 1. pt challenged to maintain core, adv to focus on UE for now. Comments vc cervical alignment, centering weight, TrA, breath Therapeutic Activity Therapeutic Activity Log roll Name w/ TrA and breath focus Comments supine>sidelying>sitting EOB x1 ea. Pt is used to sitting straight up from supine with breathholding compensation and requires verbal cue for logroll today, which she is able to demo without further cueing. Manual Therapy Treatment Consent Patient gave verbal consent for manual Yes treatment Soft Tissue Mobilization shoulders Body Location R>L UT, LS, scalenes, SCM, c- sp paraspinals, SOR Mobilization Type Cross-Friction,Rolling, Strumming,Trigger Point Release,Other Intensity/Depth Moderate Body Position Hooklying Comments R>L UT tightness manual pin and stretch to R UT and LS w/ breath x30s ea manual cervical traction 2 x10s palpable tension to R SCM and UT improve. Self-Care/Home Management Treatment Education Patient Education Body Mechanics,Home Exercise Program,Posture Other Education -Discussion during supine TrA ex's re: pt's frustration with body not doing what I want it to. I feel like it's been like that my whole life. Edu to pt re: how trauma and compensations may be related to current presentation, can approach PT as opportunity to refamiliarize with body, and mantra given, Thank you, body , for all you've done today. -Sleep positioning discussion: pt to have picture taken in supine and sidelying sleeping positions with attention to pillow supports for cervical spine alignment. -Discussion of pt's ADHD as barrier to remembering HEP and pt in agreement to put Stretch reminder in phone and reward self for completing ex 's/stretches. -Added to HEP: supine core progression w/ TrA and PPT: BKFO, Heel slides - no HO given. PT-OP-T Assessment and Plan Start: 11/23/24 12:56 Freq: Status: Active Protocol: Document 12/17/24 14:44 NBM (Rec: 12/17/24 15:31 NBM Laptop) Physical Therapy Assessment Goals Three Impairment Pt displays increased muscle tone in low back and bilateral piriformis Penitentiary Goal (LTG) Pt to present with mild muscle tone in bilateral lumbar paraspinals and piriformis LTG Duration 01/23/25 Two Impairment Pt experiences increased low back pain when gardening Fuels Sales Representative Goal (LTG) Pt to report ability to spend 90 minutes gardening without increased back pain. LTG Duration 01/23/25 One Impairment Pt does not have an appropriate home exercise program Short Term Goal (STG) Pt to be independent and compliant with an appropriate HEP STG Duration 12/23/24 Assessment Summary Assessment Treatment focus on self-care and supine core progression w/ TrA and breath focus. Raisa presents with 4/10 R-sided cervical pain particularly in SCM and UT, which improves to 2.5/10 with manual therapy and breathwork. Significant time spent troubleshooting barriers to HEP and discussion of sleeping positions (see Self- Care note). Added to HEP: supine core progression w/ TrA and PPT: BKFO, Heel slides - no HO given. Physical Therapy Plan Frequency and Duration Frequency of Treatment 2x/Week Plan of Care Start Date 11/23/24 Plan of Care End Date 01/23/25 Therapeutic Interventions Therapeutic Interventions Home Exercise Program,Joint Mobilizations,Manual Therapy, Neuromuscular Re-education, Patient/Caregiver Education, Self-Care/Home Management,Soft Tissue Mobilization,Taping, Therapeutic Activities, Therapeutic Exercises Next Visit Focus/Plan Next Note Type Treatment Note Next Visit Plan Next: Check w/ pt for pics of supine/sidelying sleep positions or assess in clinic. Check if pt is using discussed methods to improve success with HEP. Continue supine core progression, and pelvic stabilization/hip strengthening ex per 11/26 assessment. POC: Core/trunk strengthening, stretching, STM
--- NOTE | 2024-12-23 11:37 | PT.OTN ---
Current Diagnoses Dorsalgia, unspecified (12/23/24) Physical Therapy Treatment Note PT-OP-A Visit Information Start: 11/23/24 12:56 Freq: Status: Active Protocol: Document 12/23/24 10:49 DCW (Rec: 12/23/24 11:37 DCW [id number]) Out-Patient Physical Therapy Visit Information Visit Information Visit Type Treatment Note Visit Start Time 10:49 Visit Stop Time 11:30 Visit Number 7 Number of CONFIGURATION RELEASE MANAGER Visits 0 Evaluation Information Evaluation Date 11/23/24 PT-OP-B Current Condition Start: 11/23/24 12:56 Freq: Status: Active Protocol: Document 11/23/24 11:40 DCW (Rec: 11/23/24 13:31 DCW [id number]) Current Condition History of Current Condition Onset Date Three month history Current Complaints Low back pain, mid back pain, shoulder pain History of Current Condition Pt is a 19 year old female presenting with a three month history of low back pain. Reports she must have twisted wrong or something, and experienced a general severe pain. Reports it was bad enough that she ended up in the ED, however left before being seen due to the wait. Has improved over the past few months, not as frequently sore. 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 Pain improves when she lies down. Notes pain is occasionally down her posterior hips, right worse than left. Treatment Goals Patient/Caregiver Goals Return to gardening and job duties without pain Personal Factors Other Personal Factors That May Effect Hx of Migraine, PTSD, Autism, Therapy/Recovery ADHA, Depression PT-OP-C Subjective Start: 11/23/24 12:56 Freq: Status: Active Protocol: Document 12/23/24 10:49 DCW (Rec: 12/23/24 11:37 DCW [id number]) OP-PT Subjective Patient Comments Patient Comments Pt notes that she feels like she is getting better, she occasionally still experiences the sharp pain that sent her to the ER originally, but it is less severe and less frequent. PT-OP-F Manual Assessment Start: 11/23/24 12:56 Freq: Status: Active Protocol: Document 11/23/24 11:40 DCW (Rec: 11/23/24 13:16 DCW [id number]) Manual Assessments Soft Tissue Assessment Soft Tissue Mobility Assessment Mild-moderate tone in right glute, bilateral piriformis, bilateral rhomboids, R>L upper trap PT-OP-L Special Tests Start: 11/23/24 12:56 Freq: Status: Active Protocol: Document 11/23/24 11:40 DCW (Rec: 11/23/24 13:16 DCW [id number]) Special Tests Lumbar Spine Special Tests Vertical Spine Loading Test Results Negative Straight Leg Raise Test Results Negative Standing Flexion Test Results Negative Slump Test Results Negative A-P Shearing Test Results Negative PT-OP-M Strength Start: 11/23/24 12:56 Freq: Status: Active Protocol: Document 11/23/24 11:40 DCW (Rec: 11/23/24 13:16 DCW [id number]) Trunk Strength Trunk Manual Muscle Testing Core Stabilization Difficulty john abdominal musculature, improved with verbal cues PT-OP-Q Treatments Start: 11/23/24 12:56 Freq: Status: Active Protocol: Document 12/23/24 10:49 DCW (Rec: 12/23/24 11:37 DCW [id number]) Therapeutic Exercises Supine Exercises Pelvic Realignment Supine Exercise Name Ball squeeze, One leg pelvic lift, One leg press Comments Handout provided PPT Supine Exercise Name 1. PPT /c Marching 2. SLR 3. Bicycle Side bilateral Equipment Used initial tactile cue for PPT w/ LTR Reps/Minutes x10 ea Comments Unable to maintain PPT with SLR and bicycle, hold those Other Exercises quadruped Other Exercise Name 1. alt UE lift 2. alt LE lift Side bilateral Reps/Minutes x10 Comments vc TrA, breath Manual Therapy Treatment Joint Mobilizations bilateral hips Joint Short-axis hip mobs with strap Grade IV Body Position Hooklying PT-OP-T Assessment and Plan Start: 11/23/24 12:56 Freq: Status: Active Protocol: Document 12/23/24 10:49 DCW (Rec: 12/23/24 11:37 DCW [id number]) Physical Therapy Assessment Goals Three Impairment Pt displays increased muscle tone in low back and bilateral piriformis Emergency Department Goal (LTG) Pt to present with mild muscle tone in bilateral lumbar paraspinals and piriformis LTG Duration 01/23/25 Two Impairment Pt experiences increased low back pain when gardening Emergency Department Goal (LTG) Pt to report ability to spend 90 minutes gardening without increased back pain. LTG Duration 01/23/25 One Impairment Pt does not have an appropriate home exercise program Short Term Goal (STG) Pt to be independent and compliant with an appropriate HEP STG Duration 12/23/24 Assessment Summary Assessment Pt tolerating treatment well, does appear to be slowly progressing with core strengthening and stabilization. Provided handout for pelvic realignment exercises. Doing better with breath work. Physical Therapy Plan Frequency and Duration Frequency of Treatment 2x/Week Plan of Care Start Date 11/23/24 Plan of Care End Date 01/23/25 Therapeutic Interventions Therapeutic Interventions Home Exercise Program,Joint Mobilizations,Manual Therapy, Neuromuscular Re-education, Patient/Caregiver Education, Self-Care/Home Management,Soft Tissue Mobilization,Taping, Therapeutic Activities, Therapeutic Exercises Next Visit Focus/Plan Next Note Type Treatment Note Next Visit Plan Next: Check w/ pt for pics of supine/sidelying sleep positions or assess in clinic. Check if pt is using discussed methods to improve success with HEP. Continue supine core progression, and pelvic stabilization/hip strengthening ex per 11/26 assessment. POC: Core/trunk strengthening, stretching, STM
--- NOTE | 2025-01-07 14:47 | PT-OP ANOTE ---
Previous appointment 01/05/25 pt had arrived and was sent home by front desk auxiliary for being sick. Today 01/07 left voicemail for patient re: missed PT appointment at 2:30pm today and to please call front desk auxiliary at [phone]. Advised next appointment 01/12 at 2:30pm w/ PT.
--- NOTE | 2025-01-12 15:20 | PT.OTN ---
Current Diagnoses Dorsalgia, unspecified (01/12/25) Physical Therapy Treatment Note PT-OP-A Visit Information Start: 11/23/24 12:56 Freq: Status: Active Protocol: Document 01/12/25 14:30 DCW (Rec: 01/12/25 15:19 DCW [id number]) Out-Patient Physical Therapy Visit Information Visit Information Visit Type Treatment Note Visit Start Time 14:30 Visit Stop Time 15:15 Visit Number 9 Number of METALWORKING SPECIALIST Visits 0 Evaluation Information Evaluation Date 11/23/24 PT-OP-B Current Condition Start: 11/23/24 12:56 Freq: Status: Active Protocol: Document 11/23/24 11:40 DCW (Rec: 11/23/24 13:31 DCW [id number]) Current Condition History of Current Condition Onset Date Three month history Current Complaints Low back pain, mid back pain, shoulder pain History of Current Condition Pt is a 19 year old female presenting with a three month history of low back pain. Reports she must have twisted wrong or something, and experienced a general severe pain. Reports it was bad enough that she ended up in the ED, however left before being seen due to the wait. Has improved over the past few months, not as frequently sore. 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 Pain improves when she lies down. Notes pain is occasionally down her posterior hips, right worse than left. Treatment Goals Patient/Caregiver Goals Return to gardening and job duties without pain Personal Factors Other Personal Factors That May Effect Hx of Migraine, PTSD, Autism, Therapy/Recovery ADHA, Depression PT-OP-C Subjective Start: 11/23/24 12:56 Freq: Status: Active Protocol: Document 01/12/25 14:30 DCW (Rec: 01/12/25 15:19 DCW [id number]) OP-PT Subjective Patient Comments Patient Comments Not bad, but not too good either. Notes of everything, stairs and squatting are still giving her the most trouble. PT-OP-F Manual Assessment Start: 11/23/24 12:56 Freq: Status: Active Protocol: Document 11/23/24 11:40 DCW (Rec: 11/23/24 13:16 DCW [id number]) Manual Assessments Soft Tissue Assessment Soft Tissue Mobility Assessment Mild-moderate tone in right glute, bilateral piriformis, bilateral rhomboids, R>L upper trap PT-OP-L Special Tests Start: 11/23/24 12:56 Freq: Status: Active Protocol: Document 11/23/24 11:40 DCW (Rec: 11/23/24 13:16 DCW [id number]) Special Tests Lumbar Spine Special Tests Vertical Spine Loading Test Results Negative Straight Leg Raise Test Results Negative Standing Flexion Test Results Negative Slump Test Results Negative A-P Shearing Test Results Negative PT-OP-M Strength Start: 11/23/24 12:56 Freq: Status: Active Protocol: Document 11/23/24 11:40 DCW (Rec: 11/23/24 13:16 DCW [id number]) Trunk Strength Trunk Manual Muscle Testing Core Stabilization Difficulty john abdominal musculature, improved with verbal cues PT-OP-Q Treatments Start: 11/23/24 12:56 Freq: Status: Active Protocol: Document 01/12/25 14:30 DCW (Rec: 01/12/25 15:19 DCW [id number]) Manual Therapy Treatment Consent Patient gave verbal consent for manual Yes treatment Joint Mobilizations SI Joint R SI Grade III bilateral hips Joint Short-axis hip mobs with strap Grade IV Body Position Hooklying PT-OP-R Modalities Start: 01/12/25 15:19 Freq: Status: Active Protocol: Document 01/12/25 14:30 DCW (Rec: 01/12/25 15:20 DCW [id number]) Spinal Traction Traction Treatment Lumbar Method Mechanical Patient Position Hooklying Force Applied (Pounds) 40 Traction Treatment Comment 5 minutes PT-OP-T Assessment and Plan Start: 11/23/24 12:56 Freq: Status: Active Protocol: Document 01/12/25 14:30 DCW (Rec: 01/12/25 15:19 DCW [id number]) Physical Therapy Assessment Impairments Impairments Activity Tolerance,Functional Activities,Functional Mobility ,Pain,Soft Tissue Mobility, Strength,Tone Goals Three Impairment Pt displays increased muscle tone in low back and bilateral piriformis Or Director Goal (LTG) Pt to present with mild muscle tone in bilateral lumbar paraspinals and piriformis LTG Duration 01/23/25 Two Impairment Pt experiences increased low back pain when gardening Alf Goal (LTG) Pt to report ability to spend 90 minutes gardening without increased back pain. LTG Duration 01/23/25 One Impairment Pt does not have an appropriate home exercise program Short Term Goal (STG) Pt to be independent and compliant with an appropriate HEP STG Duration 12/23/24 Assessment Summary Assessment Trial of traction today, pt tolerated very well, felt it was a good stretch for her lumbar spine, but after 5 minutes, felt things were pinching, and then was a little too loose, so traction was stopped. Continues to display indications of SI dysfunction, feels much better with support during movement. Compliant with home exercises , does feel like she's more stable overall. Physical Therapy Plan Frequency and Duration Frequency of Treatment 2x/Week Plan of Care Start Date 11/23/24 Plan of Care End Date 01/23/25 Therapeutic Interventions Therapeutic Interventions Home Exercise Program,Joint Mobilizations,Manual Therapy, Neuromuscular Re-education, Patient/Caregiver Education, Self-Care/Home Management,Soft Tissue Mobilization,Taping, Therapeutic Activities, Therapeutic Exercises Next Visit Focus/Plan Next Note Type Treatment Note Next Visit Plan Next: Check w/ pt for pics of supine/sidelying sleep positions or assess in clinic. Check if pt is using discussed methods to improve success with HEP. Continue supine core progression, and pelvic stabilization/hip strengthening ex per 11/26 assessment. POC: Core/trunk strengthening, stretching, STM
--- NOTE | 2025-01-14 16:51 | PT.OTN ---
Current Diagnoses Dorsalgia, unspecified (01/14/25) Physical Therapy Treatment Note PT-OP-A Visit Information Start: 11/23/24 12:56 Freq: Status: Active Protocol: Document 01/14/25 14:44 NBM (Rec: 01/14/25 16:47 NBM Laptop) Out-Patient Physical Therapy Visit Information Visit Information Visit Type Treatment Note Visit Note Check vitals each session: 113 /64 BP, 98% SO2, 70 bpm Visit Start Time 14:38 Visit Stop Time 15:18 Visit Number 10 Number of SODIUM METHYLATE OPERATOR Visits 1 Evaluation Information Evaluation Date 11/23/24 Precautions Precautions 01/14/25: reports Hx of intermittent increased HR, low SO2. Check vitals start of session. PT-OP-B Current Condition Start: 11/23/24 12:56 Freq: Status: Active Protocol: Document 11/23/24 11:40 DCW (Rec: 11/23/24 13:31 DCW [id number]) Current Condition History of Current Condition Onset Date Three month history Current Complaints Low back pain, mid back pain, shoulder pain History of Current Condition Pt is a 19 year old female presenting with a three month history of low back pain. Reports she must have twisted wrong or something, and experienced a general severe pain. Reports it was bad enough that she ended up in the ED, however left before being seen due to the wait. Has improved over the past few months, not as frequently sore. 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 Pain improves when she lies down. Notes pain is occasionally down her posterior hips, right worse than left. Treatment Goals Patient/Caregiver Goals Return to gardening and job duties without pain Personal Factors Other Personal Factors That May Effect Hx of Migraine, PTSD, Autism, Therapy/Recovery ADHA, Depression PT-OP-C Subjective Start: 11/23/24 12:56 Freq: Status: Active Protocol: Document 01/14/25 14:44 NBM (Rec: 01/14/25 16:47 NBM Laptop) OP-PT Subjective Patient Comments Patient Comments Raisa reports it felt painful right after the traction last session. Her dog was put down and her mom had to have a second surgery Friday. It's been hard to make the time for her ex's lately, but she's been trying to keep her core active like when standing or gardening; she still gets the pain behind her neck, back and shoulders. Today she's feeling a bit off in her head, and reports a history of low SO2 and increased heart rate at times which are monitored by PCP; last night she got the feeling she gets where her hands were feeling like the blood's been cut off - her MD is aware she gets these symptoms. Pulse oximeter showed she went from 90-86%, and her heart rate was in the high 90s - 110 bpm (shows photos) when she was just sitting and not moving. Pulse ox gave normal readings for mom. She was referred for an inversion test but didn't proceed because of IV, but thinks she should do it. PT-OP-F Manual Assessment Start: 11/23/24 12:56 Freq: Status: Active Protocol: Document 11/23/24 11:40 DCW (Rec: 11/23/24 13:16 DCW [id number]) Manual Assessments Soft Tissue Assessment Soft Tissue Mobility Assessment Mild-moderate tone in right glute, bilateral piriformis, bilateral rhomboids, R>L upper trap PT-OP-L Special Tests Start: 11/23/24 12:56 Freq: Status: Active Protocol: Document 11/23/24 11:40 DCW (Rec: 11/23/24 13:16 DCW [id number]) Special Tests Lumbar Spine Special Tests Vertical Spine Loading Test Results Negative Straight Leg Raise Test Results Negative Standing Flexion Test Results Negative Slump Test Results Negative A-P Shearing Test Results Negative PT-OP-M Strength Start: 11/23/24 12:56 Freq: Status: Active Protocol: Document 11/23/24 11:40 DCW (Rec: 11/23/24 13:16 DCW [id number]) Trunk Strength Trunk Manual Muscle Testing Core Stabilization Difficulty john abdominal musculature, improved with verbal cues PT-OP-Q Treatments Start: 11/23/24 12:56 Freq: Status: Active Protocol: Document 01/14/25 14:44 NBM (Rec: 01/14/25 16:47 NBM Laptop) Therapeutic Exercises Supine Exercises Breathing from diaphragm in modified restorative pose Supine Exercise Name 1. HEP - verbal review 2. I/s in seated pursed lip breathing . Reps/Minutes 3 min Comments VC for breathing from diaphragm Sidelying Exercises side plank Sidelying Exercise Name knees and forearm Side bilateral Resistance to fatigue (HEP is AROM) Reps/Minutes 30s x 2 (alt sides) Comments verbal cues cervical/nathanael alignment, reports L shoulder pain post Other Exercises quadruped Other Exercise Name TrA w/ breath: 1. alt UE lift 2. alt UE fwd reach 3. alt LE lift Side bilateral Reps/Minutes x10 Comments tactile cue for equal WBing into LEs. LE dc'd d/t wrist/ hand discomfort Manual Therapy Treatment Consent Patient gave verbal consent for manual Yes treatment Other Other Manual Treatments Vitals obtained: 113/64 BP, 98 %, 70 bpm Symptoms monitored verbally throughout session. PT-OP-R Modalities Start: 01/12/25 15:19 Freq: Status: Active Protocol: Document 01/12/25 14:30 DCW (Rec: 01/12/25 15:20 DCW [id number]) Spinal Traction Traction Treatment Lumbar Method Mechanical Patient Position Hooklying Force Applied (Pounds) 40 Traction Treatment Comment 5 minutes PT-OP-T Assessment and Plan Start: 11/23/24 12:56 Freq: Status: Active Protocol: Document 01/14/25 14:44 NBM (Rec: 01/14/25 16:47 NBM Laptop) Physical Therapy Assessment Goals Three Impairment Pt displays increased muscle tone in low back and bilateral piriformis Detention Goal (LTG) Pt to present with mild muscle tone in bilateral lumbar paraspinals and piriformis LTG Duration 01/23/25 Two Impairment Pt experiences increased low back pain when gardening Market Research Associate Goal (LTG) Pt to report ability to spend 90 minutes gardening without increased back pain. LTG Duration 01/23/25 One Impairment Pt does not have an appropriate home exercise program Short Term Goal (STG) Pt to be independent and compliant with an appropriate HEP 01/14/25: HEP review: quadruped alt arm lifts; LE lifts, side planks. STG Duration 12/23/24 Assessment Summary Assessment Raisa's vitals are assessed start of session due to report of feeling off and last night's low SO2 and high heart rate: assessed within normal limits 113/64 98%, 70 bpm and pt able to participate in PT without change in baseline symptoms. Treatment focus on HEP review with emphasis on core strengthening. She is able to progress from arm lift in quadruped to upper extremity forward reach while maintaining Transverse abdominis m. activation and breath, demonstrating improved core control since last attempt 12/17; lower extremity lift still challenging due to wrist/hand discomfort which persists on fists, but able to perform in smaller range on forearms. Discussed plan of care of pt feels she would benefit from continued PT at this time due to ongoing pain. Physical Therapy Plan Frequency and Duration Frequency of Treatment 2x/Week Plan of Care Start Date 11/23/24 Plan of Care End Date 01/23/25 Therapeutic Interventions Therapeutic Interventions Home Exercise Program,Joint Mobilizations,Manual Therapy, Neuromuscular Re-education, Patient/Caregiver Education, Self-Care/Home Management,Soft Tissue Mobilization,Taping, Therapeutic Activities, Therapeutic Exercises Next Visit Focus/Plan Next Note Type Treatment Note Next Visit Plan *check vitals start of session * Next: Quadruped and supine pelvic realignment ex's. Consider hip extension in plantigrade. Check w/ pt for SI belt and pics of supine/ sidelying sleep positions or assess in clinic. Check if pt is using discussed methods to improve success with HEP. Continue supine core progression, and pelvic stabilization/hip strengthening ex per 11/26 assessment. POC: Core/trunk strengthening, stretching, STM
--- NOTE | 2025-01-19 16:04 | PT.OTN ---
Current Diagnoses Dorsalgia, unspecified (01/19/25) Physical Therapy Treatment Note PT-OP-A Visit Information Start: 11/23/24 12:56 Freq: Status: Active Protocol: Document 01/19/25 14:44 NBM (Rec: 01/19/25 15:54 NBM Laptop) Out-Patient Physical Therapy Visit Information Visit Information Visit Type Treatment Note Visit Note Vitals SOS 101/60 BP, 99% SO2, 79 bpm Visit Start Time 14:40 Visit Stop Time 15:21 Visit Number 11 Number of FOURDRINIER WIRE WEAVER Visits 2 Evaluation Information Evaluation Date 11/23/24 Precautions Precautions 01/14/25: reports Hx of intermittent increased HR, low SO2. Check vitals start of session. PT-OP-B Current Condition Start: 11/23/24 12:56 Freq: Status: Active Protocol: Document 11/23/24 11:40 DCW (Rec: 11/23/24 13:31 DCW [id number]) Current Condition History of Current Condition Onset Date Three month history Current Complaints Low back pain, mid back pain, shoulder pain History of Current Condition Pt is a 19 year old female presenting with a three month history of low back pain. Reports she must have twisted wrong or something, and experienced a general severe pain. Reports it was bad enough that she ended up in the ED, however left before being seen due to the wait. Has improved over the past few months, not as frequently sore. 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 Pain improves when she lies down. Notes pain is occasionally down her posterior hips, right worse than left. Treatment Goals Patient/Caregiver Goals Return to gardening and job duties without pain Personal Factors Other Personal Factors That May Effect Hx of Migraine, PTSD, Autism, Therapy/Recovery ADHA, Depression PT-OP-C Subjective Start: 11/23/24 12:56 Freq: Status: Active Protocol: Document 01/19/25 14:44 NBM (Rec: 01/19/25 15:54 NBM Laptop) OP-PT Subjective Patient Comments Patient Comments Raisa reports feeling tired and head a little spacey again . She was a bit sore after last session. This morning her low back had some sharp pain which went away when she laid still. The right side of her neck hurts today and her R arm muscles feel tight, she's not sure why. Her low back hurts with raking. She did a lot of walking in low heels on a field on Friday about 5.5 hours with sitting breaks but didn't do anything else after because of the pain in her feet, knees and hips. Friday she rested because she felt exhausted overall. PT-OP-F Manual Assessment Start: 11/23/24 12:56 Freq: Status: Active Protocol: Document 11/23/24 11:40 DCW (Rec: 11/23/24 13:16 DCW [id number]) Manual Assessments Soft Tissue Assessment Soft Tissue Mobility Assessment Mild-moderate tone in right glute, bilateral piriformis, bilateral rhomboids, R>L upper trap PT-OP-L Special Tests Start: 11/23/24 12:56 Freq: Status: Active Protocol: Document 11/23/24 11:40 DCW (Rec: 11/23/24 13:16 DCW [id number]) Special Tests Lumbar Spine Special Tests Vertical Spine Loading Test Results Negative Straight Leg Raise Test Results Negative Standing Flexion Test Results Negative Slump Test Results Negative A-P Shearing Test Results Negative PT-OP-M Strength Start: 11/23/24 12:56 Freq: Status: Active Protocol: Document 11/23/24 11:40 DCW (Rec: 11/23/24 13:16 DCW [id number]) Trunk Strength Trunk Manual Muscle Testing Core Stabilization Difficulty john abdominal musculature, improved with verbal cues PT-OP-Q Treatments Start: 11/23/24 12:56 Freq: Status: Active Protocol: Document 01/19/25 14:44 NBM (Rec: 01/19/25 15:54 NBM Laptop) Therapeutic Activity Therapeutic Activity Raking Comments Pt demos and requires cues for facing work, smaller steps, upright posture, bending at knees and proximation to work. She demos improved mechanics after visual demo. Discussion to place one foot on ledge/ stool with dishwashing. ADLs HO given. Manual Therapy Treatment Consent Patient gave verbal consent for manual Yes treatment Soft Tissue Mobilization shoulders Body Location R>L UT, LS, scalenes, c-sp paraspinals, SOR Mobilization Type Cross-Friction,Rolling, Strumming,Trigger Point Release,Other Intensity/Depth Moderate Body Position Hooklying Comments R>L UT and Scalenes tightness manual pin and stretch to R UT and LS w/ breath x30s ea manual cervical traction 2 x10s palpable tension to R SCM and UT improve. Other Other Manual Treatments Vitals obtained: 101/60 BP, 99 % SO2, 79 bpm. Denies lightheadedness. Symptoms monitored verbally throughout session. Self-Care/Home Management Treatment Education Patient Education Home Exercise Program,Pain Management Other Education ADLs Do's/Don'ts HO given. Activities Self-Care/Home Management Activities I/s in self-STM w/ theracane ( pt has at home) and with tennis ball at wall. Positive feedback response. PT-OP-R Modalities Start: 01/12/25 15:19 Freq: Status: Active Protocol: Document 01/12/25 14:30 DCW (Rec: 01/12/25 15:20 DCW [id number]) Spinal Traction Traction Treatment Lumbar Method Mechanical Patient Position Hooklying Force Applied (Pounds) 40 Traction Treatment Comment 5 minutes PT-OP-T Assessment and Plan Start: 11/23/24 12:56 Freq: Status: Active Protocol: Document 01/19/25 14:44 NBM (Rec: 01/19/25 15:54 NBM Laptop) Physical Therapy Assessment Goals Three Impairment Pt displays increased muscle tone in low back and bilateral piriformis Penitentiary Goal (LTG) Pt to present with mild muscle tone in bilateral lumbar paraspinals and piriformis LTG Duration 01/23/25 Two Impairment Pt experiences increased low back pain when gardening Penitentiary Goal (LTG) Pt to report ability to spend 90 minutes gardening without increased back pain. LTG Duration 01/23/25 One Impairment Pt does not have an appropriate home exercise program Short Term Goal (STG) Pt to be independent and compliant with an appropriate HEP 01/14/25: HEP review: quadruped alt arm lifts; LE lifts, side planks. STG Duration 12/23/24 Assessment Summary Assessment Raisa presents with R>L Upper trapezius and Scalenes m. palpable tightness which improves with manual therapy. Treatment focus on manual therapy, education for self- STM and instruction in body mechanics with ADLs to prevent or manage low back pain - pt requires cues for facing work, upright posture and smaller steps but demos improved form with cueing and repetition - HO given. Physical Therapy Plan Frequency and Duration Frequency of Treatment 2x/Week Plan of Care Start Date 11/23/24 Plan of Care End Date 01/23/25 Therapeutic Interventions Therapeutic Interventions Home Exercise Program,Joint Mobilizations,Manual Therapy, Neuromuscular Re-education, Patient/Caregiver Education, Self-Care/Home Management,Soft Tissue Mobilization,Taping, Therapeutic Activities, Therapeutic Exercises Next Visit Focus/Plan Next Note Type Treatment Note Next Visit Plan *check vitals start of session * Next: Quadruped and supine pelvic realignment ex's. Consider hip extension in plantigrade. Check w/ pt for SI belt and pics of supine/ sidelying sleep positions or assess in clinic. Check if pt is using discussed methods to improve success with HEP. Continue supine core progression, and pelvic stabilization/hip strengthening ex per 11/26 assessment. POC: Core/trunk strengthening, stretching, STM
--- NOTE | 2025-01-21 16:08 | PT.OTN ---
Current Diagnoses Dorsalgia, unspecified (01/21/25) Physical Therapy Treatment Note PT-OP-A Visit Information Start: 11/23/24 12:56 Freq: Status: Active Protocol: Document 01/21/25 14:35 DCW (Rec: 01/21/25 16:07 DCW [id number]) Out-Patient Physical Therapy Visit Information Visit Information Visit Type Treatment Note Visit Note Vitals SOS 106/62 BP, 100% SO2 , 78 bpm Visit Start Time 14:35 Visit Stop Time 15:15 Visit Number 12 Number of REIMBURSEMENT AUDITOR Visits 0 Evaluation Information Evaluation Date 11/23/24 Precautions Precautions 01/14/25: reports Hx of intermittent increased HR, low SO2. Check vitals start of session. PT-OP-B Current Condition Start: 11/23/24 12:56 Freq: Status: Active Protocol: Document 11/23/24 11:40 DCW (Rec: 11/23/24 13:31 DCW [id number]) Current Condition History of Current Condition Onset Date Three month history Current Complaints Low back pain, mid back pain, shoulder pain History of Current Condition Pt is a 19 year old female presenting with a three month history of low back pain. Reports she must have twisted wrong or something, and experienced a general severe pain. Reports it was bad enough that she ended up in the ED, however left before being seen due to the wait. Has improved over the past few months, not as frequently sore. 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 Pain improves when she lies down. Notes pain is occasionally down her posterior hips, right worse than left. Treatment Goals Patient/Caregiver Goals Return to gardening and job duties without pain Personal Factors Other Personal Factors That May Effect Hx of Migraine, PTSD, Autism, Therapy/Recovery ADHA, Depression PT-OP-C Subjective Start: 11/23/24 12:56 Freq: Status: Active Protocol: Document 01/21/25 14:35 DCW (Rec: 01/21/25 16:07 DCW [id number]) OP-PT Subjective Patient Comments Patient Comments Pt notes she thinks she might be getting ill, comes in with a mask today. Notes her brother is getting over a sinus infection PT-OP-F Manual Assessment Start: 11/23/24 12:56 Freq: Status: Active Protocol: Document 01/21/25 14:35 DCW (Rec: 01/21/25 14:46 DCW [id number]) Manual Assessments Soft Tissue Assessment Soft Tissue Mobility Assessment Mild-moderate tone in right glute, bilateral piriformis, bilateral rhomboids, R>L upper trap Joint Mobility Assessment Joint Mobility Assessment Bilateral discomfort along SI with P->A palpation PT-OP-L Special Tests Start: 11/23/24 12:56 Freq: Status: Active Protocol: Document 01/21/25 14:35 DCW (Rec: 01/21/25 14:46 DCW [id number]) Special Tests Lumbar Spine Special Tests Vertical Spine Loading Test Results Negative Straight Leg Raise Test Results Negative Standing Flexion Test Results Negative Slump Test Results Negative A-P Shearing Test Results Negative PT-OP-M Strength Start: 11/23/24 12:56 Freq: Status: Active Protocol: Document 11/23/24 11:40 DCW (Rec: 11/23/24 13:16 DCW [id number]) Trunk Strength Trunk Manual Muscle Testing Core Stabilization Difficulty john abdominal musculature, improved with verbal cues PT-OP-Q Treatments Start: 11/23/24 12:56 Freq: Status: Active Protocol: Document 01/21/25 14:35 DCW (Rec: 01/21/25 16:07 DCW [id number]) Manual Therapy Treatment Consent Patient gave verbal consent for manual Yes treatment Soft Tissue Mobilization shoulders Body Location R>L UT, LS, scalenes, c-sp paraspinals, SOR Mobilization Type Cross-Friction,Rolling, Strumming,Trigger Point Release,Other Intensity/Depth Moderate Body Position Hooklying Comments R>L UT and Scalenes tightness manual pin and stretch to R UT and LS manual cervical traction 2 x10s palpable tension to R SCM and UT improve. PT-OP-R Modalities Start: 01/12/25 15:19 Freq: Status: Active Protocol: Document 01/12/25 14:30 DCW (Rec: 01/12/25 15:20 DCW [id number]) Spinal Traction Traction Treatment Lumbar Method Mechanical Patient Position Hooklying Force Applied (Pounds) 40 Traction Treatment Comment 5 minutes PT-OP-T Assessment and Plan Start: 11/23/24 12:56 Freq: Status: Active Protocol: Document 01/21/25 14:35 DCW (Rec: 01/21/25 16:07 [facility] [id number]) Physical Therapy Assessment Impairments Impairments Activity Tolerance,Functional Activities,Functional Mobility ,Pain,Soft Tissue Mobility, Strength,Tone Goals Three Impairment Pt displays increased muscle tone in low back and bilateral piriformis Snf Goal (LTG) Pt to present with mild muscle tone in bilateral lumbar paraspinals and piriformis LTG Duration 03/25/25 Two Impairment Pt experiences increased low back pain when gardening Snf Goal (LTG) Pt to report ability to spend 90 minutes gardening without increased back pain. LTG Duration 03/25/25 One Impairment Pt does not have an appropriate home exercise program Short Term Goal (STG) Pt to be independent and compliant with an appropriate HEP 01/14/25: HEP review: quadruped alt arm lifts; LE lifts, side planks. STG Duration 02/22/25 Assessment Summary Assessment Pt making some fair progress overall, improvement in muscle tone and stability of pelvis. Does continue to demonstrate potential SI dysfunction and general joint laxity. Pt will likely benefit from continued skilled therapeutic intervention to focus on tone management, pain control, and joint stability. Physical Therapy Plan Frequency and Duration Frequency of Treatment 2x/Week Plan of Care Start Date 01/21/25 Plan of Care End Date 03/25/25 Therapeutic Interventions Therapeutic Interventions Home Exercise Program,Joint Mobilizations,Manual Therapy, Neuromuscular Re-education, Patient/Caregiver Education, Self-Care/Home Management,Soft Tissue Mobilization,Taping, Therapeutic Activities, Therapeutic Exercises Next Visit Focus/Plan Next Note Type Treatment Note Next Visit Plan *check vitals start of session * Next: Quadruped and supine pelvic realignment ex's. Consider hip extension in plantigrade. Check w/ pt for SI belt and pics of supine/ sidelying sleep positions or assess in clinic. Check if pt is using discussed methods to improve success with HEP. Continue supine core progression, and pelvic stabilization/hip strengthening ex per 11/26 assessment. POC: Core/trunk strengthening, stretching, STM
--- NOTE | 2025-01-21 16:08 | PT.OPPOC ---
Physical, Occupational & Speech Therapy At [facility] Current Diagnoses Dorsalgia, unspecified (01/21/25) Visit Care Team Role Provider Type Maria A Elliott MD Attending Provider Physician Family Provider Primary Care Provider Referring Provider Specialty: Family Practice SOFTWARE PACKAGING ENGINEER Address: [facility] [place], [address] Email: [email or web address] Plan Of Care PT-OP-B Current Condition Start: 11/23/24 12:56 Freq: Status: Active Protocol: Document 11/23/24 11:40 DCW (Rec: 11/23/24 13:31 DCW [id number]) Current Condition History of Current Condition Onset Date Three month history Current Complaints Low back pain, mid back pain, shoulder pain History of Current Condition Pt is a 19 year old female presenting with a three month history of low back pain. Reports she must have twisted wrong or something, and experienced a general severe pain. Reports it was bad enough that she ended up in the ED, however left before being seen due to the wait. Has improved over the past few months, not as frequently sore. 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 Pain improves when she lies down. Notes pain is occasionally down her posterior hips, right worse than left. Treatment Goals Patient/Caregiver Goals Return to gardening and job duties without pain Personal Factors Other Personal Factors That May Effect Hx of Migraine, PTSD, Autism, Therapy/Recovery ADHA, Depression PT-OP-T Assessment and Plan Start: 11/23/24 12:56 Freq: Status: Active Protocol: Document 01/21/25 14:35 DCW (Rec: 01/21/25 16:07 DCW [id number]) Physical Therapy Assessment Impairments Impairments Activity Tolerance,Functional Activities,Functional Mobility ,Pain,Soft Tissue Mobility, Strength,Tone Goals Three Impairment Pt displays increased muscle tone in low back and bilateral piriformis Hay Buckler Goal (LTG) Pt to present with mild muscle tone in bilateral lumbar paraspinals and piriformis LTG Duration 03/25/25 Two Impairment Pt experiences increased low back pain when gardening Hay Buckler Goal (LTG) Pt to report ability to spend 90 minutes gardening without increased back pain. LTG Duration 03/25/25 One Impairment Pt does not have an appropriate home exercise program Short Term Goal (STG) Pt to be independent and compliant with an appropriate HEP 01/14/25: HEP review: quadruped alt arm lifts; LE lifts, side planks. STG Duration 02/22/25 Assessment Summary Assessment Pt making some fair progress overall, improvement in muscle tone and stability of pelvis. Does continue to demonstrate potential SI dysfunction and general joint laxity. Pt will likely benefit from continued skilled therapeutic intervention to focus on tone management, pain control, and joint stability. Physical Therapy Plan Frequency and Duration Frequency of Treatment 2x/Week Plan of Care Start Date 01/21/25 Plan of Care End Date 03/25/25 Therapeutic Interventions Therapeutic Interventions Home Exercise Program,Joint Mobilizations,Manual Therapy, Neuromuscular Re-education, Patient/Caregiver Education, Self-Care/Home Management,Soft Tissue Mobilization,Taping, Therapeutic Activities, Therapeutic Exercises Next Visit Focus/Plan Next Note Type Treatment Note Next Visit Plan *check vitals start of session * Next: Quadruped and supine pelvic realignment ex's. Consider hip extension in plantigrade. Check w/ pt for SI belt and pics of supine/ sidelying sleep positions or assess in clinic. Check if pt is using discussed methods to improve success with HEP. Continue supine core progression, and pelvic stabilization/hip strengthening ex per 11/26 assessment. POC: Core/trunk strengthening, stretching, STM Plan of Care Dates Plan of Care Start Date 01/21/25 Plan of Care End Date 03/25/25 Electronically Signed by: Malik Botello, PT 01/21/25 9216 If you are in agreement with this Plan of Care, please return a signed and dated copy. I have reviewed this Plan of Care and certify that the skilled therapy services above are required to meet the patient?s needs. Physician Signature Date Printed Name and Credentials Clinical Instructor Signature Printed Name and Credentials
--- NOTE | 2025-02-09 16:28 | PT.OTN ---
Current Diagnoses Dorsalgia, unspecified (02/09/25) Physical Therapy Treatment Note PT-OP-A Visit Information Start: 11/23/24 12:56 Freq: Status: Active Protocol: Document 02/09/25 15:43 DCW (Rec: 02/09/25 16:28 DC [id number]) Out-Patient Physical Therapy Visit Information Visit Information Visit Type Treatment Note Visit Note Pt arrives late Visit Start Time 15:43 Visit Stop Time 16:15 Visit Number 13 Number of IMPLEMENTATION SERVICES ANALYST Visits 0 Evaluation Information Evaluation Date 11/23/24 Precautions Precautions 01/14/25: reports Hx of intermittent increased HR, low SO2. Check vitals start of session. PT-OP-B Current Condition Start: 11/23/24 12:56 Freq: Status: Active Protocol: Document 11/23/24 11:40 DCW (Rec: 11/23/24 13:31 DCW [id number]) Current Condition History of Current Condition Onset Date Three month history Current Complaints Low back pain, mid back pain, shoulder pain History of Current Pt is a 19 year old female presenting with a three Condition month history of low back pain. Reports she must have twisted wrong or something, and experienced a general severe pain. Reports it was bad enough that she ended up in the ED, however left before being seen due to the wait. Has improved over the past few months, not as frequently sore. 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 Pain improves when she lies down. Notes pain is occasionally down her posterior hips, right worse than left. Treatment Goals Patient/Caregiver Return to gardening and job duties without pain Goals Personal Factors Other Personal Hx of Migraine, PTSD, Autism, ADHA, Depression Factors That May Effect Therapy/ Recovery PT-OP-C Subjective Start: 11/23/24 12:56 Freq: Status: Active Protocol: Document 02/09/25 15:43 DCW (Rec: 02/09/25 16:28 DCW [id number]) OP-PT Subjective Patient Comments Patient Comments Pt reports she feels tired. Her back was pretty sore last week, spent increased time hunched over her pottery wheel. Notes now her upper back feels pretty tight. PT-OP-F Manual Assessment Start: 11/23/24 12:56 Freq: Status: Active Protocol: Document 01/21/25 14:35 DCW (Rec: 01/21/25 14:46 DCW [id number]) Manual Assessments Soft Tissue Assessment Soft Tissue Mobility Mild-moderate tone in right glute, bilateral piriformis Assessment , bilateral rhomboids, R>L upper trap Joint Mobility Assessment Joint Mobility Bilateral discomfort along SI with P->A palpation Assessment PT-OP-L Special Tests Start: 11/23/24 12:56 Freq: Status: Active Protocol: Document 01/21/25 14:35 DCW (Rec: 01/21/25 14:46 DCW [id number]) Special Tests Lumbar Spine Special Tests Vertical Spine Loading Test Results Negative Straight Leg Raise Test Results Negative Standing Flexion Test Results Negative Slump Test Results Negative A-P Shearing Test Results Negative PT-OP-M Strength Start: 11/23/24 12:56 Freq: Status: Active Protocol: Document 11/23/24 11:40 DCW (Rec: 11/23/24 13:16 DCW [id number]) Trunk Strength Trunk Manual Muscle Testing Core Stabilization Difficulty john abdominal musculature, improved with verbal cues PT-OP-Q Treatments Start: 11/23/24 12:56 Freq: Status: Active Protocol: Document 02/09/25 15:43 DCW (Rec: 02/09/25 16:28 DCW [id number]) Manual Therapy Treatment Consent Patient gave verbal Yes consent for manual treatment Soft Tissue Mobilization shoulders Body Location R>L UT, LS, scalenes, c/t-sp paraspinals Mobilization Type Cross-Friction,Rolling,Strumming,Trigger Point Release, Other Intensity/Depth Moderate Body Position Prone Comments R>L UT and Scalenes tightness Joint Mobilizations Scapula Joint R Scapulothoracic Direction Lateral Grade IV Body Position Sidelying PT-OP-R Modalities Start: 01/12/25 15:19 Freq: Status: Active Protocol: Document 01/12/25 14:30 DCW (Rec: 01/12/25 15:20 DCW [id number]) Spinal Traction Traction Treatment Lumbar Method Mechanical Patient Position Hooklying Force Applied ( 40 Pounds) Traction Treatment 5 minutes Comment PT-OP-T Assessment and Plan Start: 11/23/24 12:56 Freq: Status: Active Protocol: Document 02/09/25 15:43 DCW (Rec: 02/09/25 16:28 KRYSTAL [id number]) Physical Therapy Assessment Impairments Impairments Activity Tolerance,Functional Activities,Functional Mobility,Pain,Soft Tissue Mobility,Strength,Tone Goals Three Impairment Pt displays increased muscle tone in low back and bilateral piriformis Half-Way Goal (LTG) Pt to present with mild muscle tone in bilateral lumbar paraspinals and piriformis LTG Duration 03/25/25 Two Impairment Pt experiences increased low back pain when gardening Gambling Cashier Goal (LTG) Pt to report ability to spend 90 minutes gardening without increased back pain. LTG Duration 03/25/25 One Impairment Pt does not have an appropriate home exercise program Short Term Goal (STG Pt to be independent and compliant with an appropriate ) HEP 01/14/25: HEP review: quadruped alt arm lifts; LE lifts , side planks. STG Duration 02/22/25 Assessment Summary Assessment Pt came in with increased stiffness through her thoracic spine today. Good response to treatment, felt improvement following scapulothoracic joint mob. Continue to focus on hip/SI function, low back pain, and core strengthening. Physical Therapy Plan Frequency and Duration Frequency of 2x/Week Treatment Plan of Care Start 01/21/25 Date Plan of Care End 03/25/25 Date Therapeutic Interventions Therapeutic Home Exercise Program,Joint Mobilizations,Manual Interventions Therapy,Neuromuscular Re-education,Patient/Caregiver Education,Self-Care/Home Management,Soft Tissue Mobilization,Taping,Therapeutic Activities,Therapeutic Exercises Next Visit Focus/Plan Next Note Type Treatment Note Next Visit Plan *check vitals start of session* Next: Quadruped and supine pelvic realignment ex's. Consider hip extension in plantigrade. Check w/ pt for SI belt and pics of supine/sidelying sleep positions or assess in clinic. Check if pt is using discussed methods to improve success with HEP. Continue supine core progression, and pelvic stabilization/hip strengthening ex per 11/26 assessment. POC: Core/trunk strengthening, stretching, STM
--- NOTE | 2025-02-11 10:44 | PT.OTN ---
Current Diagnoses Dorsalgia, unspecified (02/11/25) Physical Therapy Treatment Note PT-OP-A Visit Information Start: 11/23/24 12:56 Freq: Status: Active Protocol: Document 02/11/25 09:47 DCW (Rec: 02/11/25 10:43 DCW [id number]) Out-Patient Physical Therapy Visit Information Visit Information Visit Type Treatment Note Visit Note 99% O2, 86 bpm mid-exercise Visit Start Time 09:47 Visit Stop Time 10:30 Visit Number 14 Number of AUTO TESTER Visits 0 Evaluation Information Evaluation Date 11/23/24 Precautions Precautions 01/14/25: reports Hx of intermittent increased HR, low SO2. Check vitals start of session. PT-OP-B Current Condition Start: 11/23/24 12:56 Freq: Status: Active Protocol: Document 11/23/24 11:40 DCW (Rec: 11/23/24 13:31 DCW [id number]) Current Condition History of Current Condition Onset Date Three month history Current Complaints Low back pain, mid back pain, shoulder pain History of Current Pt is a 19 year old female presenting with a three Condition month history of low back pain. Reports she must have twisted wrong or something, and experienced a general severe pain. Reports it was bad enough that she ended up in the ED, however left before being seen due to the wait. Has improved over the past few months, not as frequently sore. 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 Pain improves when she lies down. Notes pain is occasionally down her posterior hips, right worse than left. Treatment Goals Patient/Caregiver Return to gardening and job duties without pain Goals Personal Factors Other Personal Hx of Migraine, PTSD, Autism, ADHA, Depression Factors That May Effect Therapy/ Recovery PT-OP-C Subjective Start: 11/23/24 12:56 Freq: Status: Active Protocol: Document 02/11/25 09:47 DCW (Rec: 02/11/25 10:43 DCW [id number]) OP-PT Subjective Patient Comments Patient Comments Pt put a little strain on her back yesterday, picking up trash at a park. Not in a 'it was in pain the rest of the day, way,' but more of a 'it was achy.' Also notes that she tried to adjust her position while sitting and felt a pop in her lateral hip, notes it is not uncommon, it happens occasionally. PT-OP-F Manual Assessment Start: 11/23/24 12:56 Freq: Status: Active Protocol: Document 01/21/25 14:35 DCW (Rec: 01/21/25 14:46 DCW [id number]) Manual Assessments Soft Tissue Assessment Soft Tissue Mobility Mild-moderate tone in right glute, bilateral piriformis Assessment , bilateral rhomboids, R>L upper trap Joint Mobility Assessment Joint Mobility Bilateral discomfort along SI with P->A palpation Assessment PT-OP-L Special Tests Start: 11/23/24 12:56 Freq: Status: Active Protocol: Document 01/21/25 14:35 DCW (Rec: 01/21/25 14:46 DCW [id number]) Special Tests Lumbar Spine Special Tests Vertical Spine Loading Test Results Negative Straight Leg Raise Test Results Negative Standing Flexion Test Results Negative Slump Test Results Negative A-P Shearing Test Results Negative PT-OP-M Strength Start: 11/23/24 12:56 Freq: Status: Active Protocol: Document 11/23/24 11:40 DCW (Rec: 11/23/24 13:16 DCW [id number]) Trunk Strength Trunk Manual Muscle Testing Core Stabilization Difficulty john abdominal musculature, improved with verbal cues PT-OP-Q Treatments Start: 11/23/24 12:56 Freq: Status: Active Protocol: Document 02/11/25 09:47 DCW (Rec: 02/11/25 10:43 DCW [id number]) Gym Equipment Shuttle Recovery Unilateral Squats Resistance 37# Shuttle Recovery Stable Platform Bilateral Squats Resistance 50# Shuttle Recovery Unstable Platform Therapeutic Exercises Other Exercises Resisted Ambulation Other Exercise Name Resisted Side-stepping Side bilateral Resistance Green loop Manual Therapy Treatment Consent Patient gave verbal Yes consent for manual treatment Soft Tissue Mobilization bilateral glute/piriforms Body Location R Glute, Piriformis, hip flexors Mobilization Type Cross-Friction,Rolling Intensity/Depth Moderate Body Position Hooklying PT-OP-R Modalities Start: 01/12/25 15:19 Freq: Status: Active Protocol: Document 01/12/25 14:30 DCW (Rec: 01/12/25 15:20 DCW [id number]) Spinal Traction Traction Treatment Lumbar Method Mechanical Patient Position Hooklying Force Applied ( 40 Pounds) Traction Treatment 5 minutes Comment PT-OP-T Assessment and Plan Start: 11/23/24 12:56 Freq: Status: Active Protocol: Document 02/11/25 09:47 DCW (Rec: 02/11/25 10:43 DCW [id number]) Physical Therapy Assessment Impairments Impairments Activity Tolerance,Functional Activities,Functional Mobility,Pain,Soft Tissue Mobility,Strength,Tone Goals Three Impairment Pt displays increased muscle tone in low back and bilateral piriformis Supercalender Operator Goal (LTG) Pt to present with mild muscle tone in bilateral lumbar paraspinals and piriformis LTG Duration 03/25/25 Two Impairment Pt experiences increased low back pain when gardening Supercalender Operator Goal (LTG) Pt to report ability to spend 90 minutes gardening without increased back pain. LTG Duration 03/25/25 One Impairment Pt does not have an appropriate home exercise program Short Term Goal (STG Pt to be independent and compliant with an appropriate ) HEP 01/14/25: HEP review: quadruped alt arm lifts; LE lifts , side planks. STG Duration 02/22/25 Assessment Summary Assessment During session today, pt noted that she has been dropping things more often and her legs will occasionally feel like they're going to give out. Has upcoming appointment with PCP, recommended she make sure to discuss with PCP. Tolerated treatment well today, O2 sat and HR remained at appropriate levels with exercise. May discuss getting referral for pelvic floor PT. Physical Therapy Plan Frequency and Duration Frequency of 2x/Week Treatment Plan of Care Start 01/21/25 Date Plan of Care End 03/25/25 Date Therapeutic Interventions Therapeutic Home Exercise Program,Joint Mobilizations,Manual Interventions Therapy,Neuromuscular Re-education,Patient/Caregiver Education,Self-Care/Home Management,Soft Tissue Mobilization,Taping,Therapeutic Activities,Therapeutic Exercises Next Visit Focus/Plan Next Note Type Treatment Note Next Visit Plan *check vitals start of session* Next: Quadruped and supine pelvic realignment ex's. Consider hip extension in plantigrade. Check w/ pt for SI belt and pics of supine/sidelying sleep positions or assess in clinic. Check if pt is using discussed methods to improve success with HEP. Continue supine core progression, and pelvic stabilization/hip strengthening ex per 11/26 assessment. POC: Core/trunk strengthening, stretching, STM
--- NOTE | 2025-02-16 14:40 | PT-OP ANOTE ---
Pt's mom is present per pt's request, and pt brings reports from recent X-rays with normal findings and expresses frustration due to ongoing symptoms. Per discussion with evaluating PT Librado Botello and his 02/11/25 assessment, discussed w/ pt option of pursuing a Pelvic Floor referral from PCP to better address pt's symptoms. Explained pt is allotted 12 visits total for the year starting from recent birthdate of becoming 20. Pt and mother in agreement to discharge from current PT Plan of Care to pursue Pelvic Floor PT referral instead and utilize remaining visits accordingly. Pt escorted to Composition Stone Applicator and Schedulers notified to cancel today's PT visit and remaining scheduled visits under this referral accordingly. Evaluating PT notified as well.
--- NOTE | 2025-02-16 17:20 | PT.OPDS ---
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, [place], [address] Email: [email or web address] Visit Number Visit Number 14 Discharge Summary PT-OP-B Current Condition Start: 11/23/24 12:56 Freq: Status: Active Protocol: Document 11/23/24 11:40 DCW (Rec: 11/23/24 13:31 DCW [id number]) Current Condition History of Current Condition Onset Date Three month history Current Complaints Low back pain, mid back pain, shoulder pain History of Current Pt is a 19 year old female presenting with a three Condition month history of low back pain. Reports she must have twisted wrong or something, and experienced a general severe pain. Reports it was bad enough that she ended up in the ED, however left before being seen due to the wait. Has improved over the past few months, not as frequently sore. 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 Pain improves when she lies down. Notes pain is occasionally down her posterior hips, right worse than left. Treatment Goals Patient/Caregiver Return to gardening and job duties without pain Goals Personal Factors Other Personal Hx of Migraine, PTSD, Autism, ADHA, Depression Factors That May Effect Therapy/ Recovery PT-OP-C Subjective Start: 11/23/24 12:56 Freq: Status: Active Protocol: Document 02/11/25 09:47 DCW (Rec: 02/11/25 10:43 DCW [id number]) OP-PT Subjective Patient Comments Patient Comments Pt put a little strain on her back yesterday, picking up trash at a park. Not in a 'it was in pain the rest of the day, way,' but more of a 'it was achy.' Also notes that she tried to adjust her position while sitting and felt a pop in her lateral hip, notes it is not uncommon, it happens occasionally. PT-OP-F Manual Assessment Start: 11/23/24 12:56 Freq: Status: Active Protocol: Document 01/21/25 14:35 DCW (Rec: 01/21/25 14:46 DCW [id number]) Manual Assessments Soft Tissue Assessment Soft Tissue Mobility Mild-moderate tone in right glute, bilateral piriformis Assessment , bilateral rhomboids, R>L upper trap Joint Mobility Assessment Joint Mobility Bilateral discomfort along SI with P->A palpation Assessment PT-OP-L Special Tests Start: 11/23/24 12:56 Freq: Status: Active Protocol: Document 01/21/25 14:35 DCW (Rec: 01/21/25 14:46 DCW [id number]) Special Tests Lumbar Spine Special Tests Vertical Spine Loading Test Results Negative Straight Leg Raise Test Results Negative Standing Flexion Test Results Negative Slump Test Results Negative A-P Shearing Test Results Negative PT-OP-M Strength Start: 11/23/24 12:56 Freq: Status: Active Protocol: Document 11/23/24 11:40 DCW (Rec: 11/23/24 13:16 DCW [id number]) Trunk Strength Trunk Manual Muscle Testing Core Stabilization Difficulty john abdominal musculature, improved with verbal cues PT-OP-T Assessment and Plan Start: 11/23/24 12:56 Freq: Status: Active Protocol: Document 02/16/25 17:16 DCW (Rec: 02/16/25 17:20 DCW [id number]) Physical Therapy Assessment Assessment Summary Assessment After recent testing results, PT assessments, and conversations with pt and their mom, pt at this time agreeable to discharge from skilled therapy and pursue possibility of getting referral for pelvic floor therapy. desktop analyst notified, future appointments canceled, pt will return to skilled PT with a new referral in the future. Physical Therapy Plan Discharge Physical Therapy Discharge Comments Transition to pelvic floor therapy Next Visit Focus/Plan Next Note Type Discharge Summary
== END 2025-02-18 10:43 | disposition home or self-care (01) ==
LOC: PHYS 09:45
PROVIDERS: Family Provider Family Medicine; PCP Family Medicine; Referring Provider Family Medicine; Visit Provider Family Medicine
DX: M54.9 Dorsalgia, unspecified (principal)
CPT/HCPCS: 97110; 97140; 97162; 97530; 97535

== ENCOUNTER → 2025-02-14 14:49 | Outpatient (CLI) | payer OTHER, SELFPAY ==
--- NOTE | 2025-02-14 14:53 | DI.RAD.S_ITS ---
PROCEDURE: XR HIP W PEL IF DONE RT 2V INDICATIONS: back pain TECHNIQUE: AP pelvis with lateral view(s) of the right hip(s). COMPARISON: None. FINDINGS: Bones: No fractures or dislocations. Pelvic ring appears intact. No suspicious bony lesions. Soft tissues: The visualized bowel gas pattern is normal. No suspicious soft tissue calcifications. IMPRESSION: No acute bony abnormality. Dictated by: Fidel Wells M.D. on 02/15/2025 at 2:48 Approved by: Fidel Wells M.D. on 02/15/2025 at 2:49
--- NOTE | 2025-02-14 14:53 | DI.RAD.S_ITS ---
PROCEDURE: XR SACROILIAC JOINT MIN 3V INDICATIONS: Scroiliac joint TECHNIQUE: 3 views of the sacroiliac joints were acquired. COMPARISON: None. FINDINGS: Bones: No bony erosions or ankylosis. No suspicious bony lesions. No fractures. Soft tissues: Overlying bowel gas pattern is normal. No suspicious soft tissue densities. IMPRESSION: No radiographic evidence of sacroiliitis. Dictated by: Fidel Wells M.D. on 02/15/2025 at 2:58 Approved by: Fidel Wells M.D. on 02/15/2025 at 3:03
--- NOTE | 2025-02-14 14:53 | DI.RAD.S_ITS ---
PROCEDURE: XR LUMBAR SPINE 2-3V INDICATIONS: Scroiliac joint TECHNIQUE: 3 views of the lumbar spine were acquired. COMPARISON: None. FINDINGS: Bones: 5 [id number] vertebrae are present. There is normal bony alignment. No vertebral body compression fractures. No suspicious bony lesions. Soft tissues: Overlying bowel gas pattern is normal. No suspicious soft tissue calcifications. IMPRESSION: No acute bony abnormality. Dictated by: Fidel Wells M.D. on 02/15/2025 at 2:49 Approved by: Fidel Wells M.D. on 02/15/2025 at 2:58
== END ==
PROVIDERS: PCP Family Medicine; Referring Provider Family Medicine; Visit Provider Family Medicine
DX: M54.50 Low back pain, unspecified (principal); G89.29 Other chronic pain
CPT/HCPCS: 72100; 72202; 73502

== ENCOUNTER → 2025-03-22 15:05 | Outpatient (CLI) | payer BC, OTHER, SELFPAY ==
[2025-03-22 16:25] LABS: Add Manual Diff / Slide Review NO; Hematocrit 39.2 % (36-46); Hemoglobin 13.4 g/dL (12.0-16.0); Lymphocytes Absolute Auto 2400 /uL (1100-4500); Mean Corpuscular HGB Conc 34.3 % (30-36); Mean Corpuscular Hemoglobin 28.9 PG (26-34); Mean Corpuscular Volume 84.3 fL (80-100); Platelet Count 221 X10^3/uL (150-400)
[2025-03-22 17:07] LABS: Alanine Aminotransferase 53 IU/L (<35); Albumin 4.8 g/dL (3.5-5.0); Albumin Globulin Ratio 1.8 (1.0-2.8); Alkaline Phosphatase 97 U/L (38-126); Blood Urea Nitrogen 19 mg/dL (7-17); Calcium 10.1 mg/dL (8.4-10.2); Carbon Dioxide 25 mmol/L (22-32); Chloride 105 mmol/L (98-107); Estimated Glomerular Filt Rate > 60 mL/min (>60); Globulin 2.7 g/dL (1.7-4.1); Glucose 98 mg/dL (70-99); HEMOLYSIS < 15 (0-50); Potassium 4.0 mmol/L (3.4-5.1); Sodium 140 mmol/L (137-145); Total Protein 7.5 g/dL (6.3-8.2)
[2025-03-22 17:40] LABS: Ferritin 84 ng/mL (6-137)
[2025-03-22 18:06] LABS: HEMOLYSIS < 15 (0-50); Iron 145 ug/dL (37-170)
[2025-03-22 18:17] LABS: Percent Iron Saturation 40 % (15-50); Total Iron Binding Capacity 361 ug/dL (265-497); Transferrin 311 mg/dL (206-381)
[2025-03-22 18:38] LABS: TSH w/ Reflex to FT4 1.96 uIU/mL (0.47-4.68)
== END ==
PROVIDERS: PCP Family Medicine; Referring Provider Family Medicine; Visit Provider Internal Medicine
DX: G25.81 Restless legs syndrome (principal); G47.19 Other hypersomnia; Z01.812 Encounter for preprocedural laboratory examination; R14.0 Abdominal distension (gaseous); K92.1 Melena; N93.9 Abnormal uterine and vaginal bleeding, unspecified; E61.1 Iron deficiency; R53.82 Chronic fatigue, unspecified; R42 Dizziness and giddiness; Z83.3 Family history of diabetes mellitus
CPT/HCPCS: 36415; 80053; 82728; 83540; 83550; 84443; 85025; 85651

== ENCOUNTER → 2025-06-22 16:56 | Outpatient (CLI) | payer BC, OTHER, SELFPAY | PROVIDERS: PCP Family Medicine; Visit Provider Nurse Practitioner Family | DX: N89.8 Other specified noninflammatory disorders of vagina (principal); R39.15 Urgency of urination | CPT/HCPCS: 87077; 87086; 87186; 87210 ==